=== PATIENT | male | born 1950 | race Caucasian/White ===

== ENCOUNTER 2016-11-16 14:59 | Inpatient (IN) | payer OTHER ==
[~2016-11-16] VITALS: Ht 185.4 cm; Wt 93.4 kg
[2016-11-16] VITALS (8 sets, daily range): BP systolic 126–193; BP diastolic 70–114; PULSE 76–110; RESP 16–20; TEMP 97.5–98.9; O2SAT 94–97
[2016-11-16] MEDS ORDERED: TETANUS/DIPHTHERIA TOXOID ADULT 0.5 ML VIAL IM ONE (15:15)
--- NOTE | 2016-11-16 15:45 | RADRPT ---
EXAM DATE/TIME: 11/16/2016 15:36 [place] COMPARISON: No previous studies available for comparison. INDICATIONS : Rattlesnake bite to front of lower leg. MEDICAL HISTORY : None. SURGICAL HISTORY : None. ENCOUNTER: Initial ACUITY: 1 day PAIN SCORE: 6/10 LOCATION: Left tibia FINDINGS: Two view examination of the left tibia demonstrates no evidence of fracture or dislocation. Bony min eralization is normal. The soft tissue structures are intact. CONCLUSION: Unremarkable examination of the left tibia. No foreign object is identified. Paul Chi MD on November 16, 2016 at 15:43 Board Certified Radiologist. This report was verified electronically.
[2016-11-16 15:54] LABS: AUTOMATED NEUTROPHIL # 3.8 TH/MM3 (1.8-7.7); BASOPHIL # 0.2 TH/MM3 (0-0.2); EOSINOPHIL # 0.3 TH/MM3 (0-0.4); EOSINOPHIL % 3.5 % (0.0-4.0); HEMATOCRIT 43.6 % (39.0-51.0); LYMPH % 41.4 % (9.0-44.0); LYMPHOCYTE # 3.4 TH/MM3 (1.0-4.8); MEAN CELL VOLUME 92.3 FL (80.0-100.0); MEAN CORPUSCULAR HEMOGLOBIN 32.1 PG (27.0-34.0); MEAN CORPUSCULAR HGB CONC 34.8 % (32.0-36.0); NEUT % 47.1 % (16.0-70.0); PLATELET COUNT 97 TH/MM3 (150-450); RED BLOOD COUNT 4.72 MIL/MM3 (4.50-5.90); RED CELL DISTRIBUTION WIDTH 14.2 % (11.6-17.2); WHITE BLOOD COUNT 8.1 TH/MM3 (4.0-11.0)
[2016-11-16 15:59] LABS: HEMO FLAGS AUTO DIFF
[2016-11-16] MEDS ORDERED: MORPHINE SULFATE 8 MG/ML INJ IV PUSH ONE (16:15)
[2016-11-16] MEDS ORDERED: ONDANSETRON HCL 4 MG/2 ML VIAL IV PUSH ONE (16:15)
[2016-11-16 16:50] LABS: APTT (PATIENT) 21.7 SEC (24.3-30.1)
[2016-11-16 16:53] LABS: PLATELET ESTIMATE SMEAR LOW (NORMAL); PLATELET MORPHOLOGY NORMAL (NORMAL); SCAN/DIFF AUTO DIFF CONFIRMED
[2016-11-16 16:59] LABS: ALKALINE PHOSPHATASE 61 U/L (45-117); TOTAL BILIRUBIN ADULT 0.3 MG/DL (0.2-1.0)
[2016-11-16 17:01] LABS: ALT (GPT) 28 U/L (12-78); ANION GAP 10 MEQ/L (5-15); AST (GOT) 27 U/L (15-37); BICARBONATE 23.8 MEQ/L (21.0-32.0); CHLORIDE 107 MEQ/L (98-107); GLOMERULAR FILTRATION RATE 48 ML/MIN (>89); POTASSIUM 4.4 MEQ/L (3.5-5.1); SODIUM (NA) 141 MEQ/L (136-145)
[2016-11-16 17:02] LABS: BLOOD UREA NITROGEN 15 MG/DL (7-18)
--- NOTE | 2016-11-16 17:02 | PD ---
HPI Chief Complaint: Bite or Sting Time Seen by Provider: 15:05 Travel History International Travel<30 days: No Contact w/Intl Traveler<30days: No Traveled to known affect area: No History of Present Illness HPI 66-year-old male was brought to the emergency room by EMS after a rattlesnake bite. Patient was mowing grass and his equipment got stuck and he jumped out of his mower to check the equipment and noticed a diamondback rattlesnake about 3 foot-long came out of the grass and bit him on his left leg through his trousers. He developed intense pain immediately at the site and there was only one puncture wound. He had to physically pull the snake out since it was still attached to his leg by the fang. He called 911. Patient was in significant pain when he arrived. He was mildly tachycardic and hypertensive. He is otherwise a healthy person. He was confident about the identification of the snake since he claims that he knows snakes very well. [facility] Past Medical History Narrative Medical List of his past medical, surgical, social and family history is reviewed from the nursing note. Cardiac Catheterization: Yes Hypertension: Yes Tetanus Vaccination: Unknown Social History Alcohol Use: Yes (weekend) Tobacco Use: No Allergies-Medications (Allergen,Severity, Reaction): Coded Allergies: No Known Allergies (Unverified , 11/16/16) Comments No known drug allergies Reported Meds & Prescriptions Reported Meds & Active Scripts Active No Active Prescriptions or Reported Medications Narrative Medication List of his home medications reviewed from the nursing note. Review of Systems Except as stated in HPI: all other systems reviewed are Neg Physical Exam Narrative GENERAL: Awake, alert, moderate distress, anxious, jjkq-vgt-wj-proportion SKIN: Focused skin assessment warm/dry. One puncture wound on the left mid vinson. There is no redness or swelling HEAD: Atraumatic. Normocephalic. EYES: Pupils equal and round. No scleral icterus. No injection or drainage. ENT: No nasal bleeding or discharge. Mucous membranes pink and moist. NECK: Trachea midline. No JVD. CARDIOVASCULAR: Regular rate and rhythm. No murmur appreciated. RESPIRATORY: No accessory muscle use. Clear to auscultation. Breath sounds equal bilaterally. GASTROINTESTINAL: Abdomen soft, non-tender, nondistended. Hepatic and splenic margins not palpable. MUSCULOSKELETAL: No obvious deformities. No clubbing. No cyanosis. No edema. NEUROLOGICAL: Awake and alert. No obvious cranial nerve deficits. Motor grossly within normal limits. Normal speech. PSYCHIATRIC: Appropriate mood and affect; insight and judgment normal. Data Data Last Documented VS Vital Signs Date Time Temp Pulse Resp B/P Pulse Ox O2 Delivery O2 Flow Rate FiO2 11/16/16 15:08 98.7 109 18 193/96 97 Orders Tetanus/Diphtheria Tox Adult (Tetanus/Di (11/16/16 15:15) Complete Blood Count With Diff (11/16/16 15:08) Comprehensive Metabolic Panel (11/16/16 15:08) Prothrombin Time / Inr (Pt) (11/16/16 15:08) Act Partial Throm Time (Ptt) (11/16/16 15:08) Fibrinogen (11/16/16 15:08) ^ Saline Lock (11/16/16 15:08) Outreach Liaison / Telemetry CHANTAL.Q8H (11/16/16 15:08) Urinalysis - C+S If Indicated (11/16/16 15:08) Tibia/Fibula (Ap/Lat) (11/16/16 ) Morphine Inj (Morphine Inj) (11/16/16 16:15) Ondansetron Inj (Zofran Inj) (11/16/16 16:15) D-Dimer (11/16/16 17:04) Sodium Chlor 0.9% 1000 Ml Inj (Ns 1000 M (11/16/16 17:15) Sodium Chlor 0.9% 1000 Ml Inj (Ns 1000 M (11/16/16 17:15) Type And Screen (11/16/16 17:09) ^ Other Nursing Orders (11/16/16 17:10) Crotalidae Polyval Imm Gideon Inj (Crofab I (11/16/16 17:30) Fentanyl Inj (Fentanyl Inj) (11/16/16 17:30) Metoclopramide Inj (Reglan Inj) (11/16/16 17:30) Admit Order (Ed Use Only) (11/16/16 17:40) Labs Laboratory Tests Test 11/16/16 11/16/16 11/16/16 15:28 16:58 17:21 White Blood Count 8.1 TH/MM3 Red Blood Count 4.72 MIL/MM3 Hemoglobin 15.2 GM/DL Hematocrit 43.6 % Mean Corpuscular Volume 92.3 FL Mean Corpuscular Hemoglobin 32.1 PG Mean Corpuscular Hemoglobin 34.8 % Concent Red Cell Distribution Width 14.2 % Platelet Count 97 TH/MM3 Mean Platelet Volume 7.9 FL Neutrophils (%) (Auto) 47.1 % Lymphocytes (%) (Auto) 41.4 % Monocytes (%) (Auto) 6.0 % Eosinophils (%) (Auto) 3.5 % Basophils (%) (Auto) 2.0 % Neutrophils # (Auto) 3.8 TH/MM3 Lymphocytes # (Auto) 3.4 TH/MM3 Monocytes # (Auto) 0.5 TH/MM3 Eosinophils # (Auto) 0.3 TH/MM3 Basophils # (Auto) 0.2 TH/MM3 CBC Comment AUTO DIFF Differential Comment AUTO DIFF CONFIRMED Platelet Estimate LOW Platelet Morphology Comment NORMAL Prothrombin Time 11.0 SEC Prothromb Time International 1.0 RATIO Ratio Activated Partial 21.7 SEC Thromboplast Time Fibrinogen 109 mg/dL Sodium Level 141 MEQ/L Potassium Level 4.4 MEQ/L Chloride Level 107 MEQ/L Carbon Dioxide Level 23.8 MEQ/L Anion Gap 10 MEQ/L Blood Urea Nitrogen 15 MG/DL Creatinine 1.48 MG/DL Estimat Glomerular Filtration 48 ML/MIN Rate Random Glucose 107 MG/DL Calcium Level 8.9 MG/DL Total Bilirubin 0.3 MG/DL Aspartate Amino Transf 27 U/L (AST/SGOT) Alanine Aminotransferase 28 U/L (ALT/SGPT) Alkaline Phosphatase 61 U/L Total Protein 7.3 GM/DL Albumin 3.9 GM/DL D-Dimer Quantitative (PE/DVT) 9.94 MG/L FEU Blood Type A POSITIVE Antibody Screen NEGATIVE Blood Bank Comment [facility] Medical Decision Making Medical Screen Exam Complete: Yes Emergency Medical Condition: Yes Medical Record Reviewed: Yes Interpretation(s) Twelve-lead EKG was reviewed by me. Normal sinus rhythm, left axis deviation, tachycardia, nonspecific ST-T wave changes. Rate of 115 bpm. Differential Diagnosis Rattlesnake bite Narrative Course 5:45 PM I discussed the case initially after I saw the patient with poison control. The poison inventory control assistant recommended to measure the leg at the bite area and 2 spots above it in which case this would be the knee and mid thigh. This needed to be done every 15 minutes and if there is swelling then to call back poison control in which case patient would probably become a candidate for CroFab. They specifically recommended not to give CroFab at this point since there was no swelling. Labs were done as per their recommendation as well. Meanwhile as the measurements were getting done and they were unchanged the patient started experiencing increasing pain and some ankle swelling. I had ordered morphine with Zofran which made the patient very nauseous and vomit. Poison control was called back at this point by me once again since I was really concerned of his [id number]-proportion. They connected me with the electrical engineering intern and as per him since the patient's lab work, which had come back by now, showed thrombocytopenia to some extent (but no old CBC to compare with) and low fibrinogen count, he recommended to go ahead and start CroFab. I spoke with the patient and let him know about the antivenom and asked him if he was allergic to Papaya since the antivenom contained papain. He seemed anxious and irritated at this point and told me he wasn't sure but as far as he knew he was not allergic to anything. Patient will be getting the CroFab and has been admitted to the lime trimmer. I spoke with Dr. Barrett and conveyed to him regarding the care plan. He came and saw the patient as well. The circumferential measurements will continue. Patient has been given fentanyl and Reglan at this point for pain control and intense nausea. 7 PM patient continued to complain of his leg pain. I went back to check on him since the nurse told me that his leg appears to be significantly swollen. At this point I noticed that both medial and lateral part of the lower leg was severely tender on palpation and was tense but posteriorly over the calf area the tension was not as much and not much of tenderness either. At this point I decided to check the compartment pressures. Please refer to my procedure note and the measurements. I have spoken with Dr. Hamilton from ICU and let her know about the compartment pressure as well as conveyed the care plan as per the electrical engineering intern. Critical Care Narrative Aggregate critical care time was 80 minutes. Time to perform other separately billable procedures was not included in the critical care time. My time did not include minutes spent treating any other patients simultaneously or on activities that did not directly contribute to the patient's treatment. The services I provided to this patient were to treat and/or prevent clinically significant deterioration that could result in: Rattlesnake bite, CroFab administration I provided critical care services requiring my management, as noted below: Chart data review, documentation time, medication orders and management, vital sign assessments/reviewing monitor data, ordering and reviewing lab tests, ordering and interpreting/reviewing x-rays and diagnostic studies, care of the patient and discussion of the patient with the admitting physicians. Procedures Procedure Narrative Compartment pressure: The area was cleaned with Betadine to check for the anterior, medial and superficial posterior laceration. The Bovey apparatus was loaded up and calibrated. 1% lidocaine about 1 mL was infiltrated in each site. The Soila needle was inserted. These were the following pressures Anterior compartment: Less than 10 Medial compartment: Less than 10 Superficial posterior compartment: Less than 10 Patient tolerated the procedure overall well. And it was asked to be applied by the nurse on each puncture sites. EKG Prior to Arrival: No Physician Communication Physician Communication Dr. Barrett, electrical engineering intern Diagnosis Primary Impression: Toxic effect of rattlesnake venom Qualified Code: T63.011A - Toxic effect of rattlesnake venom, accidental or unintentional, initial encounter Admitting Information Admitting Physician Requests: Admit Scripts No Active Prescriptions or Reported Meds Lili Felder MD Nov 16, 2016 17:02
[2016-11-16] MEDS ORDERED: CROTALIDAE FAB ANTIVENIN POLYVAL 1 GM VIAL IV ONE ×2 (17:15→22:00)
[2016-11-16] MEDS ORDERED: SODIUM CHLOR 0.9% 1000 ML INJ 1,000 ML IV ONE ×2 (17:15)
[2016-11-16] MEDS ORDERED: SODIUM CHLOR 0.9% IV ONE (17:30)
[2016-11-16] MEDS ORDERED: CROTALIDAE POLYVAL IMM FAB IV ONE (17:30)
[2016-11-16] MEDS ORDERED: METOCLOPRAMIDE HCL 10 MG/2 ML VIAL IV PUSH ONE (17:30)
[2016-11-16] MEDS ORDERED: CROTALIDAE POLYVALENT IMMUNE FAB IV ONE (17:30)
[2016-11-16] MEDS ORDERED: [UNRECOGNIZED DRUG - OTHER] IV ONE (17:30)
--- NOTE | 2016-11-16 17:51 | HHI.HP ---
HPI Service Critical Care Medicine Primary Care Physician No Primary Care Physician Admission Diagnosis Rattlesnake bite Diagnosis: (1) Toxic effect of rattlesnake venom Diagnosis: Principal (2) History of hypertension Diagnosis: Principal (3) Thrombocytopenia Diagnosis: Principal (4) Fibrinogen decreased Diagnosis: Principal (5) Elevated d-dimer Diagnosis: Principal Chief Complaint: Bitten by dominant background snake to left anterior tibia Travel History International Travel<30 Days: No Contact w/Intl Traveler <30 Da: No Traveled to Known Affected Are: No History of Present Illness 66-year-old male. Date of admission 11/16/2016. Past medical history includes hypertension and prior cardiac catheterization. Patient has a significant family history for coronary disease with his mother, father and 3 brothers all from cardiac events. 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 He jumped off a smaller approximately 2 PM to check his equipment and was acutely bitten by a diamondback rattlesnake about 3 foot-long on his left anterior tibia through his trousers. He developed intense pain and check the side and there was one puncture wound. This is approximately 2 x 2 centimeters in size. Patient was in significant pain when he arrived. He was mildly tachycardic and hypertensive. Workup included measuring 3 separate sites including at the site of the rattlesnake bite and 10 cm cranial 2.. There is some trace pedal edema and swelling above the knee. This will be documented below. Platelets 97. His creatinine slightly elevated at 1.47. Elevated d-dimer as well. Patient is currently tentatively. He did not tolerate morphine which can nausea. Receive fentanyl in ED. Poison control recommended repeating all laboratories including BMP, CBC, coags in 6 hours.. At 1835, patient received 6 g of CroFab. Each follows diluted with 18 mL of 0.9 % normal saline and the next with continuous manual inversion. This was further dilated total dose in 250 cc normal saline. This was begun at an infusion rate of 50 mL per minute. If no reaction is noted, will be increased to 250 mL an hour to deliver the remainder of the dose within 60 minutes. The patient will be monitored for 1 hour following CroFab infusion. The need for additional and available based upon clinical response. Level of snake bite. 42 cm to 42.5 cm since admission 10 cm above snake bite 37 cm to 38.5 cm Review of Systems Constitutional: DENIES: Fatigue, Fever, Weight gain, Weight loss, Chills Endocrine: DENIES: Polydipsia, Polyuria Eyes: DENIES: Blurred vision, Double Vision Respiratory: DENIES: Apneas Cardiovascular: DENIES: Chest pain Gastrointestinal: DENIES: Constipation, Diarrhea, Nausea, Vomiting Musculoskeletal: COMPLAINS OF: Joint pain, Muscle aches, Joint Swelling Integumentary: COMPLAINS OF: Abnormal pigmentation Hematologic/lymphatic: DENIES: Bruising Immunologic/allergic: DENIES: Eczema Neurologic: DENIES: Abnormal gait, Headache Psychiatric: DENIES: Anxiety, Confusion Past Family Social History Allergies: Coded Allergies: No Known Allergies (Unverified , 11/16/16) Past Medical History History of hypertension Past Surgical History Cardiac catheterization Reported Medications None Active Ordered Medications Reviewed in EMR Family History Mother, father and 3 brothers from myocardial infarction/complications of heart disease Social History Social alcohol weekend. Denies binge drinker. No tobacco. No IV drug use. Physical Exam Vital Signs Vital Signs Date Time Temp Pulse Resp B/P Pulse Ox O2 Delivery O2 Flow Rate FiO2 11/16/16 15:08 98.7 109 18 193/96 97 Physical Exam GENERAL: 66-year-old male, resting in bed in mild distress secondary to pain SKIN: Warm and dry. Noted diamondback snake bite to the anterior tibia approximately 2 x 2 centimeters in size. 42.5 cm circumference at snake bite site. 10 cm above 38.5 cm. Circumference HEAD: Atraumatic. Normocephalic. EYES: Pupils equal and round around 3 mm bilaterally and reactive. No scleral icterus. No injection or drainage. ENT: No nasal bleeding or discharge. Mucous membranes pink and moist. NECK: Trachea midline. No JVD. CARDIOVASCULAR: Tachycardic, RR. S1, S2. No S4. Without murmurs. RESPIRATORY: Clear to auscultation. Breath sounds equal bilaterally. GASTROINTESTINAL: Abdomen soft, non-tender, nondistended. Hepatic and splenic margins not palpable. MUSCULOSKELETAL: Extremities with edema as above in the skin section NEUROLOGICAL: Awake and alert. No obvious cranial nerve deficits. Motor grossly within normal limits. Five out of 5 muscle strength in the arms and legs. Normal speech. PSYCHIATRIC: Appropriate mood and affect; insight and judgment normal. Laboratory Laboratory Tests Test 11/16/16 15:28 White Blood Count 8.1 Red Blood Count 4.72 Hemoglobin 15.2 Hematocrit 43.6 Mean Corpuscular Volume 92.3 Mean Corpuscular Hemoglobin 32.1 Mean Corpuscular Hemoglobin 34.8 Concent Red Cell Distribution Width 14.2 Platelet Count 97 Mean Platelet Volume 7.9 Neutrophils (%) (Auto) 47.1 Lymphocytes (%) (Auto) 41.4 Monocytes (%) (Auto) 6.0 Eosinophils (%) (Auto) 3.5 Basophils (%) (Auto) 2.0 Neutrophils # (Auto) 3.8 Lymphocytes # (Auto) 3.4 Monocytes # (Auto) 0.5 Eosinophils # (Auto) 0.3 Basophils # (Auto) 0.2 CBC Comment AUTO DIFF Differential Comment AUTO DIFF CONFIRMED Platelet Estimate LOW Platelet Morphology Comment NORMAL Prothrombin Time 11.0 Prothromb Time International 1.0 Ratio Activated Partial 21.7 Thromboplast Time Fibrinogen 109 Sodium Level 141 Potassium Level 4.4 Chloride Level 107 Carbon Dioxide Level 23.8 Anion Gap 10 Blood Urea Nitrogen 15 Creatinine 1.48 Estimat Glomerular Filtration 48 Rate Random Glucose 107 Calcium Level 8.9 Total Bilirubin 0.3 Aspartate Amino Transf 27 (AST/SGOT) Alanine Aminotransferase 28 (ALT/SGPT) Alkaline Phosphatase 61 Total Protein 7.3 Albumin 3.9 Result Diagram: 11/16/16 1528 11/16/16 1528 Imaging Last Impressions Tibia/Fibula X-Ray 11/16/16 0000 Signed Impressions: Service Date/Time: Wednesday, November 16, 2016 15:36 - CONCLUSION: Unremarkable examination of the left tibia. No foreign object is identified. Paul Chi MD Assessment and Plan Assessment and Plan Neuro/Psych: Pain management's rattlesnake bite Acetaminophen 650 mg by mouth every 6 hours when necessary for fever [place] 5/325 one tablet every 4 hours. Pain 1-5 Dilaudid 1 mg IV every 4 hours when necessary pain 6-10 CV: Sinus tachycardia Currently on normal saline at 100 cc an hour Follow-up on EKG Resp: Nasal cannula to maintain saturations greater than or equal to 92% Incentive spirometry while awake Follow-up on chest x-ray GI: Regular diet. Pantoprazole for GI prophylaxis Ana-Colace twice a day for bowel regimen Zofran for nausea : No indication for Gimenez catheter placement Endo: Sliding-scale insulin if indicated to maintain euglycemia Renal: Elevated creatinine possibly acute kidney injury Monitor urine output Accurate I's and O's Currently on normal saline at 100 cc an hour. Follow BMP in a.m. Heme: Thrombocytopenia Low fibrinogen Elevated d-dimer Recommended to repeat laboratories within 6 hours post snake bite. Treat as clinically indicated MSK: Diamondback snake bite Serial circumferential measurements every 15 minutes until swelling stops. Snake bite is increased to 42 cm to 42.5 cm 10 cm Above snake bite has increased from 37-38.5 cm. Received CroFab 6 g 1 now. Will monitor closely one hour following CroFab infusion. If controlled - defined as no increase in swelling and resolution of coagulopathy is not achieved administer additional 6 g of CroFab IV over one hour. If controlled - defined as increase in swelling and resolution of coagulopathy is achieved the maintenance dose of CroFab. This is a 2 g CroFab infused over 1 hour every 6 hours 3 dosages. ID: Monitor for infection FEN: Replacing electrolytes as clinically indicated Access - Utilize peripheral IV. Central line if indicated Prophylaxis - GI - pantoprazole - DVT - SCD/heparin subcutaneous Critical Care: The total critical care time was 35 minutes. Time to perform other separately billable procedures was not included in the critical care time. Code Status Full code Discussed Condition With Patient. Care plan discussed all questions answered. Problem Qualifiers (1) Toxic effect of rattlesnake venom: Qualified Code: T63.011A - Toxic effect of rattlesnake venom, accidental or unintentional, initial encounter Gus Barrett MD Nov 16, 2016 17:51
[2016-11-16] MEDS ORDERED: ACETAMINOPHEN 325 MG TAB PO PRN (18:00)
[2016-11-16] MEDS ORDERED: MISCELLANEOUS NURSING INFORMATION XX SCH (18:00)
[2016-11-16] MEDS ORDERED: CHLORHEXIDINE GLUCONATE 2 % 1 PACK (2 CLOTHS) TOP PRN (18:00)
[2016-11-16] MEDS ORDERED: SODIUM CHLORIDE 0.9% FLUSH 10 ML FLUSH IV FLUSH PRN (18:00)
[2016-11-16] MEDS ORDERED: ONDANSETRON HCL 4 MG/2 ML VIAL IV PRN (18:00)
[2016-11-16] MEDS ORDERED: BISACODYL 10 MG SUPP RECTAL PRN (18:00)
[2016-11-16] MEDS ORDERED: RESP: ALBUTEROL 2.5 MG/3 ML NEB (PRN) INH (18:00)
[2016-11-16] MEDS ORDERED: HYDROmorphone HCL PF 1 MG/ML VIAL IV PRN (18:00)
[2016-11-16] MEDS ORDERED: MAGNESIUM HYDROXIDE SUSP 30 ML CUP PO PRN (18:00)
[2016-11-16] MEDS ORDERED: ACETAMINOPHEN/HYDROcodone 325 MG/5 MG TAB PO PRN (18:00)
[2016-11-16] MEDS ORDERED: SENNOSIDES 8.6 MG TAB PO PRN (18:00)
[2016-11-16 18:36] LABS: BLOOD, URINE SMALL (NEG); COMMENT (UR) CULT NOT INDICATED; CULTURE IF INDICATED CULT NOT INDICATED; GLUCOSE,URINE NEG (NEG); KETONE, URINE NEG (NEG); MUCUS URINE FEW /lpf (OCC); NITRITE,URINE NEG (NEG); SQUAMOUS EPITHELIAL CELL URINE <1 /hpf (0-5); URINE COLOR LIGHT-YELLOW (YELLW/STRAW)
[2016-11-16] MEDS ORDERED: LIDOCAINE HCL 1% PF 30 ML VIAL ONE (18:46)
[2016-11-16] MEDS: SODIUM CHLOR 0.9% 1000 ML INJ 1,000 ML IV SCH (20:11)
[2016-11-16 20:13] LABS: AUTOMATED NEUTROPHIL # 11.2 TH/MM3 (1.8-7.7); BASOPHIL # 0.1 TH/MM3 (0-0.2); BASOPHIL % 0.4 % (0.0-2.0); EOSINOPHIL % 0.2 % (0.0-4.0); HEMATOCRIT 45.8 % (39.0-51.0); HEMO FLAGS DIFF FINAL; LYMPH % 8.2 % (9.0-44.0); LYMPHOCYTE # 1.1 TH/MM3 (1.0-4.8); MEAN CELL VOLUME 92.7 FL (80.0-100.0); MEAN CORPUSCULAR HEMOGLOBIN 30.5 PG (27.0-34.0); MEAN CORPUSCULAR HGB CONC 32.9 % (32.0-36.0); MONO % 9.4 % (0.0-8.0); NEUT % 81.8 % (16.0-70.0); PLATELET COUNT 244 TH/MM3 (150-450); RED BLOOD COUNT 4.94 MIL/MM3 (4.50-5.90); RED CELL DISTRIBUTION WIDTH 14.2 % (11.6-17.2); WHITE BLOOD COUNT 13.7 TH/MM3 (4.0-11.0)
[2016-11-16 20:32] LABS: BICARBONATE 23.2 MEQ/L (21.0-32.0); POTASSIUM 4.3 MEQ/L (3.5-5.1)
[2016-11-16 21:39] LABS: INTERNATIONAL NORMALIZED RATIO GREATER THAN 16.7 RATIO
[2016-11-16 21:42] LABS: APTT (PATIENT) 26.2 SEC (24.3-30.1); PROTHROMBIN TIME - PATIENT GREATER THAN 180.0 SEC (9.8-11.6)
[2016-11-16 21:46] LABS: FIBRINOGEN LESS THAN 50 mg/dL (227-377)
[2016-11-16] MEDS ORDERED: diphenhydrAMINE HCL 50 MG/ML VIAL IV PUSH ONE (22:30)
[2016-11-16] MEDS ORDERED: HYDROmorphone HCL PF 1 MG/ML VIAL IV PUSH PRN (22:30)
[2016-11-16] MEDS: DOCUSATE SODIUM 50 MG/SENNA 8.6 MG TAB PO SCH (22:51)
[2016-11-16] MEDS: HYDROmorphone HCL PF 1 MG/ML VIAL IV PRN (22:51)
[2016-11-16] MEDS: SODIUM CHLORIDE 0.9% FLUSH 10 ML FLUSH IV FLUSH SCH (22:52)
[2016-11-17] VITALS (15 sets, daily range): BP systolic 84–142; BP diastolic 56–75; PULSE 84–124; RESP 11–23; TEMP 97.5–99.7; O2SAT 94–99
[2016-11-17 01:56] LABS: AUTOMATED NEUTROPHIL # 14.7 TH/MM3 (1.8-7.7); BASOPHIL % 0.1 % (0.0-2.0); HEMATOCRIT 40.3 % (39.0-51.0); HEMO FLAGS DIFF FINAL; LYMPH % 3.4 % (9.0-44.0); LYMPHOCYTE # 0.5 TH/MM3 (1.0-4.8); MEAN CELL VOLUME 92.4 FL (80.0-100.0); MEAN CORPUSCULAR HEMOGLOBIN 31.2 PG (27.0-34.0); MEAN CORPUSCULAR HGB CONC 33.8 % (32.0-36.0); MONO % 5.9 % (0.0-8.0); NEUT % 90.6 % (16.0-70.0); PLATELET COUNT 270 TH/MM3 (150-450); RED BLOOD COUNT 4.36 MIL/MM3 (4.50-5.90); RED CELL DISTRIBUTION WIDTH 14.3 % (11.6-17.2); WHITE BLOOD COUNT 16.2 TH/MM3 (4.0-11.0)
[2016-11-17 02:18] LABS: PROTHROMBIN TIME - PATIENT 18.8 SEC (9.8-11.6)
[2016-11-17 02:19] LABS: APTT (PATIENT) 23.7 SEC (24.3-30.1)
[2016-11-17 02:27] LABS: INTERNATIONAL NORMALIZED RATIO 1.7 RATIO
[2016-11-17] MEDS ORDERED: CROTALIDAE FAB ANTIVENIN POLYVAL 1 GM VIAL IV ONE (02:45)
[2016-11-17] MEDS ORDERED: diphenhydrAMINE HCL 50 MG/ML VIAL IV PUSH ONE (02:45)
[2016-11-17] MEDS ORDERED: CROTALIDAE POLYVAL IMM FAB IV ONE (03:00)
[2016-11-17] MEDS ORDERED: SODIUM CHLOR 0.9% IV ONE (03:00)
[2016-11-17 03:08] LABS: CKMB 8.2 NG/ML (0.5-3.6)
[2016-11-17] MEDS ORDERED: LACTATED RINGER'S 1000 ML INJ 1,000 ML IV ONE (03:15)
[2016-11-17] MEDS: CHLORHEXIDINE GLUCONATE 2 % 1 PACK (2 CLOTHS) TOP SCH (03:28)
[2016-11-17] MEDS ORDERED: GLUCAGON 1 MG/ML VIAL OTHER PRN (03:30)
[2016-11-17] MEDS ORDERED: methylPREDNISolone SOD SUCC 125 MG/2 ML VIAL IV PUSH ONE (03:30)
[2016-11-17] MEDS ORDERED: DEXTROSE 50% IN WATER 50 ML VIAL(D50) IV PRN (03:30)
[2016-11-17 04:23] LABS: AUTOMATED NEUTROPHIL # 12.6 TH/MM3 (1.8-7.7); HEMATOCRIT 37.6 % (39.0-51.0); HEMO FLAGS DIFF FINAL; LYMPH % 4.4 % (9.0-44.0); LYMPHOCYTE # 0.6 TH/MM3 (1.0-4.8); MEAN CELL VOLUME 93.8 FL (80.0-100.0); MEAN CORPUSCULAR HEMOGLOBIN 30.9 PG (27.0-34.0); NEUT % 89.6 % (16.0-70.0); PLATELET COUNT 278 TH/MM3 (150-450); RED BLOOD COUNT 4.01 MIL/MM3 (4.50-5.90); RED CELL DISTRIBUTION WIDTH 14.3 % (11.6-17.2); WHITE BLOOD COUNT 14.1 TH/MM3 (4.0-11.0)
[2016-11-17 04:31] LABS: APTT (PATIENT) 23.6 SEC (24.3-30.1); INTERNATIONAL NORMALIZED RATIO 1.4 RATIO; PROTHROMBIN TIME - PATIENT 16.1 SEC (9.8-11.6)
[2016-11-17 05:47] LABS: CALCIUM-PROTEIN CORRECTED 8.2 MG/DL (8.5-10.1); MAGNESIUM 1.7 MG/DL (1.5-2.5); POTASSIUM 6.5 MEQ/L (3.5-5.1); TOTAL BILIRUBIN ADULT 0.5 MG/DL (0.2-1.0)
[2016-11-17] MEDS: INSULIN ASPART SUPPLEMENTAL SCALE SQ SCH ×4 (06:42→20:04)
[2016-11-17 07:06] LABS: APTT (PATIENT) 23.4 SEC (24.3-30.1); INTERNATIONAL NORMALIZED RATIO 1.4 RATIO; PROTHROMBIN TIME - PATIENT 15.4 SEC (9.8-11.6)
[2016-11-17 07:42] LABS: BASOPHIL % 0.1 % (0.0-2.0); HEMATOCRIT 35.4 % (39.0-51.0); HEMO FLAGS DIFF FINAL; LYMPH % 5.5 % (9.0-44.0); LYMPHOCYTE # 0.7 TH/MM3 (1.0-4.8); MEAN CELL VOLUME 93.9 FL (80.0-100.0); MEAN CORPUSCULAR HEMOGLOBIN 30.6 PG (27.0-34.0); MEAN CORPUSCULAR HGB CONC 32.5 % (32.0-36.0); MONO % 2.6 % (0.0-8.0); NEUT % 91.8 % (16.0-70.0); PLATELET COUNT 271 TH/MM3 (150-450); RED BLOOD COUNT 3.76 MIL/MM3 (4.50-5.90); RED CELL DISTRIBUTION WIDTH 14.4 % (11.6-17.2); WHITE BLOOD COUNT 13.1 TH/MM3 (4.0-11.0)
[2016-11-17] MEDS: DOCUSATE SODIUM 50 MG/SENNA 8.6 MG TAB PO SCH ×2 (09:00→20:00)
[2016-11-17] MEDS ORDERED: DEXTROSE 50% IN WATER 50 ML VIAL(D50) IV PUSH ONE (09:00)
[2016-11-17] MEDS ORDERED: CALCIUM GLUCONATE 10% 1 GM/10 ML VIAL SLOW IVP ONE (09:00)
[2016-11-17] MEDS ORDERED: INSULIN HUMAN REGULAR 1,000 UNITS/10 ML VIAL IV PUSH ONE (09:00)
[2016-11-17] MEDS ORDERED: SODIUM POLYSTYRENE SULFONATE SUSP 15 GM/60 ML CUP PO ONE (09:00)
[2016-11-17] MEDS ORDERED: SODIUM BICARBONATE 8.4% SOLN 50 MEQ/50 ML VIAL SLOW IVP ONE (09:00)
--- NOTE | 2016-11-17 09:09 | HHI.CCPN ---
Subjective Remarks/Hospital Course 66-year-old male. Date of admission 11/16/2016. Past medical history includes hypertension and prior cardiac catheterization. Patient has a significant family history for coronary disease with his mother, father and 3 brothers all from cardiac events. 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 He jumped off a smaller approximately 2 PM to check his equipment and was acutely bitten by a diamondback rattlesnake about 3 foot-long on his left anterior tibia through his trousers. He developed intense pain and check the side and there was one puncture wound. This is approximately 2 x 2 centimeters in size. Patient was in significant pain when he arrived. He was mildly tachycardic and hypertensive. Workup included measuring 3 separate sites including at the site of the rattlesnake bite and 10 cm cranial 2.. There is some trace pedal edema and swelling above the knee. This will be documented below. Platelets 97. His creatinine slightly elevated at 1.47. Elevated d-dimer as well. Patient is currently tentatively. He did not tolerate morphine which can nausea. Receive fentanyl in ED. Poison control recommended repeating all laboratories including BMP, CBC, coags in 6 hours.. At 1835, patient received 6 g of CroFab. Each follows diluted with 18 mL of 0.9 % normal saline and the next with continuous manual inversion. This was further dilated total dose in 250 cc normal saline. This was begun at an infusion rate of 50 mL per minute. If no reaction is noted, will be increased to 250 mL an hour to deliver the remainder of the dose within 60 minutes. The patient will be monitored for 1 hour following CroFab infusion. The need for additional and available based upon clinical response. Level of snake bite. 42 cm to 42.5 cm since admission 10 cm above snake bite 37 cm to 38.5 cm Subjective 11/17: Tmax 99.2. Received 2 additional dosage of 6 g CroFab overnight. Initially fulminant DIC. Fibrinogen currently 61. INR 1.4. PTT 23. Improving DIC panel and poison control recommends maintenance dose of CroFab 2 g over one hour every 6 hours 3 dosages. Laboratories including CBC, coags, fibrinogen and d-dimer post 1 hour infusion. Increased pain medications with hydromorphone 0.5-1 mg every 2 hours when necessary pain. Pain is currently an 8 out of 10. More ecchymosis noted but this edema at site of incision tendency was above much improved. No signs of compartment syndrome with palpable peripheral pulses Objective Vital Signs Date Time Temp Pulse Resp B/P Pulse Ox O2 Delivery O2 Flow Rate FiO2 11/17/16 06:00 98 11/17/16 04:00 98.1 15 94/62 96 11/16/16 23:13 Nasal Cannula 3.00 Result Diagram: 11/17/16 0729 11/17/16 0353 Imaging Last Impressions Tibia/Fibula X-Ray 11/16/16 0000 Signed Impressions: Service Date/Time: Wednesday, November 16, 2016 15:36 - CONCLUSION: Unremarkable examination of the left tibia. No foreign object is identified. Paul Chi MD Objective Remarks GENERAL: 66-year-old male, resting in bed in mild distress secondary to pain SKIN: Warm and dry. Noted diamondback snake bite to the anterior tibia approximately 2 x 2 centimeters in size some oozing. Increasing evolving ecchymoses throughout the left lower extremity from below the knee to toes. 41 cm circumference at snake bite site. 10 cm above 38 cm. Circumference HEAD: Atraumatic. Normocephalic. EYES: Pupils equal and round around 3 mm bilaterally and reactive. No scleral icterus. No injection or drainage. ENT: No nasal bleeding or discharge. Mucous membranes pink and moist. NECK: Trachea midline. No JVD. CARDIOVASCULAR: Tachycardic, RR. S1, S2. No S4. Without murmurs. RESPIRATORY: Clear to auscultation. Breath sounds equal bilaterally. GASTROINTESTINAL: Abdomen soft, non-tender, nondistended. Hepatic and splenic margins not palpable. MUSCULOSKELETAL: Extremities with edema as above in the skin section NEUROLOGICAL: Awake and alert. No obvious cranial nerve deficits. Motor grossly within normal limits. Five out of 5 muscle strength in the arms and legs. Normal speech. PSYCHIATRIC: Appropriate mood and affect; insight and judgment normal. A/P Assessment and Plan Neuro/Psych: Pain management's rattlesnake bite Acetaminophen 650 mg by mouth every 6 hours when necessary for fever Hydrocodone/acetaminophen 5/325 one tablet every 4 hours. Pain 1-5 Hydromorphone 0.5-1 mg IV every 2 hours. Pain management 1-10 as well CV: Sinus tachycardia Lactic acidosis Currently on normal saline at 125 cc an hour Currently not requiring antihypertensives and/or vasopressors Serial lactates until clear. Currently 2.7 Resp: Hypoalbuminemia Nasal cannula to maintain saturations greater than or equal to 92% Incentive spirometry while awake Chest x-ray revealed no acute cardiopulmonary findings GI: We'll switch to a renal diet Pantoprazole for GI prophylaxis Docusate sodium/senna 1 tablet twice a day for bowel regimen Zofran as needed for nausea : No indication for Gimenez catheter placement Endo: Sliding-scale insulin with low regimen Novulog mbefore meals/at bedtime Renal: Acute kidney injury Increased to 2.27 overnight Unclear inciting event. Check urine eosinophil/electrolytes. Kidney ultrasound ordered Increase crystalloid resuscitation see above Monitor urine output Accurate I's and O's Currently on normal saline at 125 cc an hour. Follow BMP in a.m. Avoid nephrotoxic drugs Heme: Thrombocytopenia Low fibrinogen Elevated d-dimer Recommended to repeat laboratories within one hour after receiving CroFab bolus. INR: 1.4. PTT 23. Fibrinogen 61. D-dimer 2.1 MSK: Diamondback snake bite Serial circumferential measurements every 15 minutes until swelling stops. Snake bite circumference at site decreased from 42.5-41 cm 10 cm Above snake bite has increased from 38.5-38 cm. Currently on maintenance dose of CroFab 2 g IV infusion 1 hour every 6 hours 3 dosages. Will monitor closely one hour following CroFab infusion. Check laboratories as above in heme section Status post tetanus diphtheria tox 0.5 mg IM 1 ID: Monitor for infection FEN: Hyperkalemia Replacing electrolytes as clinically indicated Received calcium gluconate 1 g 1, 10 units insulin, one amp of D50, 1 amp of sodium bicarbonate and 15 g Kayexalate. Recheck in 3 hours Access - Utilize peripheral IV. Central line if indicated Prophylaxis - GI - pantoprazole - DVT - SCD/no pharmacological prophylaxis in light of DIC Level III follow-up Gus Barrett MD Nov 17, 2016 09:09
[2016-11-17] MEDS: PANTOPRAZOLE SODIUM 40 MG VIAL IV SCH (09:18)
[2016-11-17] MEDS: SODIUM CHLORIDE 0.9% FLUSH 10 ML FLUSH IV FLUSH SCH ×2 (09:21→20:00)
[2016-11-17] MEDS: HYDROmorphone HCL PF 1 MG/ML VIAL IV PRN ×3 (09:32→20:00)
[2016-11-17] MEDS ORDERED: SODIUM CHLOR 0.45% 1000 ML INJ 1,000 ML IV ONE (10:00)
[2016-11-17] MEDS ORDERED: MAGNESIUM SULFATE 1 GM PREMIX 100 ML IV ONE (10:00)
[2016-11-17] MEDS: SODIUM CHLOR 0.9% IV SCH ×3 (10:10→22:33)
[2016-11-17] MEDS: CROTALIDAE POLYVAL IMM FAB IV SCH ×3 (10:10→22:33)
[2016-11-17 13:05] LABS: BASOPHIL % 0.1 % (0.0-2.0); HEMATOCRIT 27.8 % (39.0-51.0); HEMO FLAGS DIFF FINAL; MEAN CELL VOLUME 93.4 FL (80.0-100.0); MEAN CORPUSCULAR HEMOGLOBIN 30.7 PG (27.0-34.0); MEAN CORPUSCULAR HGB CONC 32.9 % (32.0-36.0); MONO % 2.4 % (0.0-8.0); NEUT % 89.5 % (16.0-70.0); PLATELET COUNT 212 TH/MM3 (150-450); RED BLOOD COUNT 2.97 MIL/MM3 (4.50-5.90); RED CELL DISTRIBUTION WIDTH 14.6 % (11.6-17.2); WHITE BLOOD COUNT 12.3 TH/MM3 (4.0-11.0)
[2016-11-17 13:22] LABS: APTT (PATIENT) 24.5 SEC (24.3-30.1); INTERNATIONAL NORMALIZED RATIO 1.2 RATIO; PROTHROMBIN TIME - PATIENT 13.8 SEC (9.8-11.6)
--- NOTE | 2016-11-17 15:05 | EKG ---
Date Performed: 11/16/2016 Time Performed: 18:15:15 PTAGE: 66 years EKG: SINUS TACHYCARDIA ABNORMAL RHYTHM ECG NO PREVIOUS TRACING DOCTOR: Rachael Palomares Interpretating Date/Time 11/17/2016 14:58:55
[2016-11-17] MEDS: SODIUM CHLOR 0.9% 1000 ML INJ 1,000 ML IV SCH ×2 (15:52→20:00)
[2016-11-17] MEDS ORDERED: ONDANSETRON HCL 4 MG/2 ML VIAL IV PUSH PRN (17:00)
--- NOTE | 2016-11-17 17:56 | RADRPT ---
EXAM DATE/TIME: 11/17/2016 16:39 [facility] COMPARISON: No previous studies available for comparison. INDICATIONS : Increased BUN/creatinine. MEDICAL HISTORY : Hypertension. Joint and muscle pain. SURGICAL HISTORY : Cardiac cath. ENCOUNTER: Initial ACUITY: 1 day PAIN SCORE: 0/10 LOCATION: Bilateral flank MEASUREMENTS: RIGHT KIDNEY: 12.1 x 4.8 x 5.7 cm LEFT KIDNEY: 11.2 x 4.8 x 6.0 cm FINDINGS: RIGHT KIDNEY: Renal cortex is normal in thickness and echotexture. No hydronephrosis, stone, or mass. LEFT KIDNEY: Renal cortex is normal in thickness and echotexture. No hydronephrosis, stone, or mass except for 2. 5 x 2.7 x 2.2 cm cyst. BLADDER: Within normal limits given the degree of distension. CONCLUSION: Normal examination except for cyst within the left kidney. Paul Chi MD on November 17, 2016 at 17:54 Board Certified Radiologist. This report was verified electronically.
[2016-11-17 18:10] LABS: CKMB 16.2 NG/ML (0.5-3.6)
[2016-11-17 19:46] LABS: AUTOMATED NEUTROPHIL # 14.2 TH/MM3 (1.8-7.7); BASOPHIL % 0.1 % (0.0-2.0); HEMATOCRIT 23.9 % (39.0-51.0); HEMO FLAGS DIFF FINAL; LYMPH % 9.1 % (9.0-44.0); LYMPHOCYTE # 1.5 TH/MM3 (1.0-4.8); MEAN CELL VOLUME 93.2 FL (80.0-100.0); MEAN CORPUSCULAR HEMOGLOBIN 31.3 PG (27.0-34.0); MEAN CORPUSCULAR HGB CONC 33.6 % (32.0-36.0); MONO % 3.6 % (0.0-8.0); NEUT % 87.2 % (16.0-70.0); PLATELET COUNT 182 TH/MM3 (150-450); RED BLOOD COUNT 2.57 MIL/MM3 (4.50-5.90); RED CELL DISTRIBUTION WIDTH 14.4 % (11.6-17.2); WHITE BLOOD COUNT 16.3 TH/MM3 (4.0-11.0)
[2016-11-17 20:47] LABS: APTT (PATIENT) 23.6 SEC (24.3-30.1); PROTHROMBIN TIME - PATIENT 11.4 SEC (9.8-11.6)
[2016-11-18] VITALS (22 sets, daily range): BP systolic 117–149; BP diastolic 60–78; PULSE 98–128; RESP 8–28; TEMP 98.2–100.2; O2SAT 95–100
[2016-11-18 01:54] LABS: AUTOMATED NEUTROPHIL # 12.3 TH/MM3 (1.8-7.7); BASOPHIL % 0.1 % (0.0-2.0); HEMATOCRIT 21.3 % (39.0-51.0); HEMO FLAGS DIFF FINAL; LYMPH % 10.7 % (9.0-44.0); LYMPHOCYTE # 1.6 TH/MM3 (1.0-4.8); MEAN CELL VOLUME 93.1 FL (80.0-100.0); MEAN CORPUSCULAR HEMOGLOBIN 31.2 PG (27.0-34.0); MEAN CORPUSCULAR HGB CONC 33.5 % (32.0-36.0); NEUT % 83.2 % (16.0-70.0); PLATELET COUNT 166 TH/MM3 (150-450); RED BLOOD COUNT 2.28 MIL/MM3 (4.50-5.90); RED CELL DISTRIBUTION WIDTH 14.9 % (11.6-17.2); WHITE BLOOD COUNT 14.8 TH/MM3 (4.0-11.0)
[2016-11-18 02:02] LABS: APTT (PATIENT) 23.3 SEC (24.3-30.1); PROTHROMBIN TIME - PATIENT 11.3 SEC (9.8-11.6)
[2016-11-18 02:28] LABS: CKMB 16.8 NG/ML (0.5-3.6)
[2016-11-18] MEDS: HYDROmorphone HCL PF 1 MG/ML VIAL IV PRN ×4 (03:03→23:06)
[2016-11-18] MEDS: SODIUM CHLOR 0.9% 1000 ML INJ 1,000 ML IV SCH (03:03)
[2016-11-18] MEDS: CHLORHEXIDINE GLUCONATE 2 % 1 PACK (2 CLOTHS) TOP SCH (03:03)
[2016-11-18 05:33] LABS: AUTOMATED NEUTROPHIL # 13.9 TH/MM3 (1.8-7.7); BASOPHIL % 0.1 % (0.0-2.0); HEMATOCRIT 22.8 % (39.0-51.0); HEMO FLAGS DIFF FINAL; LYMPH % 10.5 % (9.0-44.0); LYMPHOCYTE # 1.8 TH/MM3 (1.0-4.8); MEAN CELL VOLUME 93.4 FL (80.0-100.0); MEAN CORPUSCULAR HEMOGLOBIN 31.6 PG (27.0-34.0); MEAN CORPUSCULAR HGB CONC 33.9 % (32.0-36.0); MONO % 6.9 % (0.0-8.0); NEUT % 82.5 % (16.0-70.0); PLATELET COUNT 180 TH/MM3 (150-450); RED BLOOD COUNT 2.44 MIL/MM3 (4.50-5.90); RED CELL DISTRIBUTION WIDTH 14.7 % (11.6-17.2); WHITE BLOOD COUNT 16.8 TH/MM3 (4.0-11.0)
[2016-11-18 05:48] LABS: APTT (PATIENT) 19.8 SEC (24.3-30.1); PROTHROMBIN TIME - PATIENT 10.8 SEC (9.8-11.6)
[2016-11-18 06:16] LABS: ALKALINE PHOSPHATASE 38 U/L (45-117); ALT (GPT) 44 U/L (12-78); ANION GAP 6 MEQ/L (5-15); AST (GOT) 161 U/L (15-37); BICARBONATE 25.6 MEQ/L (21.0-32.0); BLOOD UREA NITROGEN 46 MG/DL (7-18); CHLORIDE 110 MEQ/L (98-107); CREATINE KINASE 4403 U/L (39-308); GLOMERULAR FILTRATION RATE 52 ML/MIN (>89); MAGNESIUM 2.2 MG/DL (1.5-2.5); POTASSIUM 5.1 MEQ/L (3.5-5.1); SODIUM (NA) 142 MEQ/L (136-145); TOTAL BILIRUBIN ADULT 0.3 MG/DL (0.2-1.0)
[2016-11-18] MEDS: INSULIN ASPART SUPPLEMENTAL SCALE SQ SCH (06:20)
[2016-11-18 06:47] LABS: CKMB 25.4 NG/ML (0.5-3.6)
[2016-11-18 08:35] LABS: APTT (PATIENT) 21.1 SEC (24.3-30.1); PROTHROMBIN TIME - PATIENT 11.1 SEC (9.8-11.6)
[2016-11-18] MEDS: DOCUSATE SODIUM 50 MG/SENNA 8.6 MG TAB PO SCH ×3 (09:00→19:49)
--- NOTE | 2016-11-18 10:32 | HHI.CCPN ---
Subjective Remarks/Hospital Course 66-year-old male. Date of admission 11/16/2016. Past medical history includes hypertension and prior cardiac catheterization. Patient has a significant family history for coronary disease with his mother, father and 3 brothers all from cardiac events. 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 He jumped off a smaller approximately 2 PM to check his equipment and was acutely bitten by a diamondback rattlesnake about 3 foot-long on his left anterior tibia through his trousers. He developed intense pain and check the side and there was one puncture wound. This is approximately 2 x 2 centimeters in size. Patient was in significant pain when he arrived. He was mildly tachycardic and hypertensive. Workup included measuring 3 separate sites including at the site of the rattlesnake bite and 10 cm cranial 2.. There is some trace pedal edema and swelling above the knee. This will be documented below. Platelets 97. His creatinine slightly elevated at 1.47. Elevated d-dimer as well. Patient is currently tentatively. He did not tolerate morphine which can nausea. Receive fentanyl in ED. Poison control recommended repeating all laboratories including BMP, CBC, coags in 6 hours.. At 1835, patient received 6 g of CroFab. Each follows diluted with 18 mL of 0.9 % normal saline and the next with continuous manual inversion. This was further dilated total dose in 250 cc normal saline. This was begun at an infusion rate of 50 mL per minute. If no reaction is noted, will be increased to 250 mL an hour to deliver the remainder of the dose within 60 minutes. The patient will be monitored for 1 hour following CroFab infusion. The need for additional and available based upon clinical response. Level of snake bite. 42 cm to 42.5 cm since admission 10 cm above snake bite 37 cm to 38.5 cm 11/17: Tmax 99.2. Received 2 additional dosage of 6 g CroFab overnight. Initially fulminant DIC. Fibrinogen currently 61. INR 1.4. PTT 23. Improving DIC panel and poison control recommends maintenance dose of CroFab 2 g over one hour every 6 hours 3 dosages. Laboratories including CBC, coags, fibrinogen and d-dimer post 1 hour infusion. Increased pain medications with hydromorphone 0.5-1 mg every 2 hours when necessary pain. Pain is currently an 8 out of 10. More ecchymosis noted but this edema at site of incision tendency was above much improved. No signs of compartment syndrome with palpable peripheral pulses Subjective 11/18: Currently afebrile. Off maintenance CroFab. Still receiving every 6 hours CBC, coags, fibrinogen and d-dimer's. CPK elevated 4400. Renal failure resolving. Remains tachycardic. Objective Vital Signs Date Time Temp Pulse Resp B/P Pulse Ox O2 Delivery O2 Flow Rate FiO2 11/18/16 06:00 108 11/18/16 04:00 98.2 8 120/68 95 11/17/16 23:00 Nasal Cannula 3.00 Intake and Output 11/17/16 11/17/16 11/17/16 07:59 15:59 23:59 Intake Total 2122 ml 3008 ml 565 ml Output Total 1200 ml 500 ml Balance 2122 ml 1808 ml 65 ml Result Diagram: 11/18/16 0809 11/18/16 0512 Imaging Last Impressions Renal Ultrasound 11/17/16 0000 Signed Impressions: Service Date/Time: October 16:39 - CONCLUSION: Normal examination except for cyst within the left kidney. Paul Chi MD Tibia/Fibula X-Ray 11/16/16 0000 Signed Impressions: Service Date/Time: Wednesday, November 16, 2016 15:36 - CONCLUSION: Unremarkable examination of the left tibia. No foreign object is identified. Paul Chi MD Objective Remarks GENERAL: 66-year-old male, resting in bed in mild distress secondary to pain SKIN: Warm and dry. Noted diamondback snake bite to the anterior tibia approximately 2 x 2 centimeters in size some oozing. Increasing evolving ecchymoses throughout the left lower extremity from below the knee to toes. 42.5 cm circumference at snake bite site. 10 cm above 38 cm. Circumference HEAD: Atraumatic. Normocephalic. EYES: Pupils equal and round around 3 mm bilaterally and reactive. No scleral icterus. No injection or drainage. ENT: No nasal bleeding or discharge. Mucous membranes pink and moist. NECK: Trachea midline. No JVD. CARDIOVASCULAR: Tachycardic, RR. S1, S2. No S4. Without murmurs. RESPIRATORY: Clear to auscultation. Breath sounds equal bilaterally. GASTROINTESTINAL: Abdomen soft, non-tender, nondistended. Hepatic and splenic margins not palpable. MUSCULOSKELETAL: Extremities with edema as above in the skin section NEUROLOGICAL: Awake and alert. No obvious cranial nerve deficits. Motor grossly within normal limits. Five out of 5 muscle strength in the arms and legs. Normal speech. PSYCHIATRIC: Appropriate mood and affect; insight and judgment normal. A/P Assessment and Plan Neuro/Psych: Pain management's rattlesnake bite Acetaminophen 650 mg by mouth every 6 hours when necessary for fever Hydrocodone/acetaminophen 5/325 one tablet every 4 hours. Pain 1-5 Hydromorphone 0.5-1 mg IV every 2 hours. Pain management 1-10 as well CV: Sinus tachycardia Lactic acidosis - resolving Currently on one half normal saline with 50 mEq sodium bicarbonate ampule at 125 cc an hour Currently not requiring antihypertensives and/or vasopressors Serial lactates until clear.. Resp: Hypoxia Nasal cannula to maintain saturations greater than or equal to 92% Incentive spirometry while awake Chest x-ray revealed no acute cardiopulmonary findings GI: Hypo-albumin anemia Continue renal diet Pantoprazole for GI prophylaxis Docusate sodium/senna 1 tablet twice a day for bowel regimen Zofran as needed for nausea : No indication for Gimenez catheter placement Endo: Sliding-scale insulin will be discontinued Renal: Acute kidney injury Left renal cyst Decreased creatinine to 2.27-1.37 Unclear inciting event. Check urine eosinophil/electrolytes. Kidney ultrasound revealed no hydronephrosis. Left renal cyst Increase crystalloid resuscitation see above Monitor urine output Accurate I's and O's Follow BMP in a.m. Avoid nephrotoxic drugs Heme: Thrombocytopenia Low fibrinogen Elevated d-dimer Recommended to repeat laboratories within one hour after receiving CroFab bolus. INR: 1.4. PTT 23. Fibrinogen 61. D-dimer 2.1 Received 1 cryoprecipitate yesterday. MSK: Diamondback snake bite Serial circumferential measurements every 15 minutes until swelling stops. Snake bite circumference at site decreased from 42.5-42 cm 10 cm Above snake bite has increased from 38.5-38 cm. Has completed maintenance dose of CroFab 2 g IV infusion 1 hour every 6 hours 3 dosages. Check laboratories as above in heme section Status post tetanus diphtheria tox 0.5 mg IM 1 ID: Monitor for infection FEN: Replacing electrolytes as clinically indicated Access - Utilize peripheral IV. Central line if indicated Prophylaxis - GI - pantoprazole - DVT - SCD/no pharmacological prophylaxis in light of DIC Level II follow-up Gus Barrett MD Nov 18, 2016 10:32
[2016-11-18] MEDS: PANTOPRAZOLE SODIUM 40 MG VIAL IV SCH (10:57)
[2016-11-18] MEDS: SODIUM CHLORIDE 0.9% FLUSH 10 ML FLUSH IV FLUSH SCH ×2 (10:57→19:49)
[2016-11-18] MEDS: SODIUM BICARBONATE 8.4% INJ 50 MEQ in SODIUM CHLOR 0.45% 1000 ML INJ 1,000 ML IV SCH ×2 (11:37→19:49)
--- NOTE | 2016-11-18 12:18 | PD.TRANSFR ---
Transfer Summary Admission Date Nov 16, 2016 at 17:44 Transfer Date: Nov 18, 2016 Admitting Diagnosis Rattlesnake bite Diagnoses: (1) Toxic effect of rattlesnake venom Diagnosis: Principal (2) History of hypertension Diagnosis: Principal (3) Thrombocytopenia Diagnosis: Principal (4) Fibrinogen decreased Diagnosis: Principal (5) Elevated d-dimer Diagnosis: Principal Significant Findings Status post 24 vials CroFab Transfer Summary/Subjective Please see below. Objective Vital Signs Date Time Temp Pulse Resp B/P Pulse Ox O2 Delivery O2 Flow Rate FiO2 11/18/16 11:37 18 11/18/16 11:00 122 11/18/16 09:30 96 Nasal Cannula 3.00 11/18/16 08:00 98.7 117/60 Intake and Output 11/17/16 11/17/16 11/18/16 08:00 16:00 00:00 Intake Total 2122 ml 3008 ml 565 ml Output Total 1200 ml 500 ml Balance 2122 ml 1808 ml 65 ml Result Diagram: 11/18/16 0809 11/18/16 0512 Imaging Last Impressions Renal Ultrasound 11/17/16 0000 Signed Impressions: Service Date/Time: October 16:39 - CONCLUSION: Normal examination except for cyst within the left kidney. Paul Chi MD Tibia/Fibula X-Ray 11/16/16 0000 Signed Impressions: Service Date/Time: Wednesday, November 16, 2016 15:36 - CONCLUSION: Unremarkable examination of the left tibia. No foreign object is identified. Paul Chi MD Objective Remarks GENERAL: 66-year-old male, resting in bed in mild distress secondary to pain SKIN: Warm and dry. Noted diamondback snake bite to the anterior tibia approximately 2 x 2 centimeters in size some oozing. Increasing evolving ecchymoses throughout the left lower extremity from below the knee to toes. 42.5 cm circumference at snake bite site. 10 cm above 38 cm. Circumference HEAD: Atraumatic. Normocephalic. EYES: Pupils equal and round around 3 mm bilaterally and reactive. No scleral icterus. No injection or drainage. ENT: No nasal bleeding or discharge. Mucous membranes pink and moist. NECK: Trachea midline. No JVD. CARDIOVASCULAR: Tachycardic, RR. S1, S2. No S4. Without murmurs. RESPIRATORY: Clear to auscultation. Breath sounds equal bilaterally. GASTROINTESTINAL: Abdomen soft, non-tender, nondistended. Hepatic and splenic margins not palpable. MUSCULOSKELETAL: Extremities with edema as above in the skin section NEUROLOGICAL: Awake and alert. No obvious cranial nerve deficits. Motor grossly within normal limits. Five out of 5 muscle strength in the arms and legs. Normal speech. PSYCHIATRIC: Appropriate mood and affect; insight and judgment normal. A/P Assessment and Plan Neuro/Psych: Pain management's rattlesnake bite Acetaminophen 650 mg by mouth every 6 hours when necessary for fever Hydrocodone/acetaminophen 5/325 one tablet every 4 hours. Pain 1-5 Hydromorphone 0.5-1 mg IV every 2 hours. Pain management 1-10 as well CV: Sinus tachycardia Lactic acidosis - resolving Currently on one half normal saline with 50 mEq sodium bicarbonate ampule at 125 cc an hour Currently not requiring antihypertensives and/or vasopressors Serial lactates until clear.. Resp: Hypoxia Nasal cannula to maintain saturations greater than or equal to 92% Incentive spirometry while awake Chest x-ray revealed no acute cardiopulmonary findings GI: Hypo-albumin anemia Continue renal diet Pantoprazole for GI prophylaxis Docusate sodium/senna 1 tablet twice a day for bowel regimen Zofran as needed for nausea : No indication for Gimenez catheter placement Endo: Sliding-scale insulin will be discontinued Renal: Acute kidney injury Left renal cyst Decreased creatinine to 2.27-1.37 Unclear inciting event. Check urine eosinophil/electrolytes. Kidney ultrasound revealed no hydronephrosis. Left renal cyst Increase crystalloid resuscitation see above Monitor urine output Accurate I's and O's Follow BMP in a.m. Avoid nephrotoxic drugs Heme: Thrombocytopenia Low fibrinogen Elevated d-dimer Recommended to repeat laboratories within one hour after receiving CroFab bolus. INR: 1.4. PTT 23. Fibrinogen 61. D-dimer 2.1 Received 1 cryoprecipitate yesterday. MSK: Diamondback snake bite Serial circumferential measurements every 15 minutes until swelling stops. Snake bite circumference at site decreased from 42.5-42 cm 10 cm Above snake bite has increased from 38.5-38 cm. Has completed maintenance dose of CroFab 2 g IV infusion 1 hour every 6 hours 3 dosages. Check laboratories as above in heme section Status post tetanus diphtheria tox 0.5 mg IM 1 ID: Monitor for infection FEN: Replacing electrolytes as clinically indicated Access - Utilize peripheral IV. Central line if indicated Prophylaxis - GI - pantoprazole - DVT - SCD/no pharmacological prophylaxis in light of DIC Level II follow-up Gus Barrett MD Nov 18, 2016 12:18
[2016-11-18] MEDS: POTASSIUM PHOSPHATE/SODIUM PHOSPHATE 250 MG TAB PO SCH ×2 (13:05→19:48)
[2016-11-18 14:03] LABS: PLATELET COUNT 165 TH/MM3 (150-450); REVIEW FLAG FINAL
[2016-11-18 14:17] LABS: APTT (PATIENT) 21.3 SEC (24.3-30.1); PROTHROMBIN TIME - PATIENT 10.8 SEC (9.8-11.6)
[2016-11-18] MEDS ORDERED: diphenhydrAMINE HCL 25 MG CAP PO ONE (14:45)
[2016-11-18] MEDS ORDERED: ACETAMINOPHEN 500 MG CPLT PO ONE (14:45)
[2016-11-18 21:26] LABS: HEMATOCRIT 21.1 % (39.0-51.0); PLATELET COUNT 140 TH/MM3 (150-450); REVIEW FLAG FINAL
[2016-11-18 21:49] LABS: PROTHROMBIN TIME - PATIENT 10.5 SEC (9.8-11.6)
[2016-11-18 21:52] LABS: APTT (PATIENT) 21.3 SEC (24.3-30.1)
[2016-11-19] VITALS (22 sets, daily range): BP systolic 126–151; BP diastolic 65–86; PULSE 11–125; RESP 13–32; TEMP 98.6–99.4; O2SAT 93–99
[2016-11-19 01:04] LABS: PLATELET COUNT 138 TH/MM3 (150-450)
[2016-11-19 01:10] LABS: REVIEW FLAG FINAL
[2016-11-19 01:13] LABS: HEMATOCRIT 20.8 % (39.0-51.0)
[2016-11-19 01:27] LABS: APTT (PATIENT) 22.2 SEC (24.3-30.1); PROTHROMBIN TIME - PATIENT 10.7 SEC (9.8-11.6)
[2016-11-19] MEDS: SODIUM BICARBONATE 8.4% INJ 50 MEQ in SODIUM CHLOR 0.45% 1000 ML INJ 1,000 ML IV SCH ×2 (03:53→11:35)
[2016-11-19] MEDS: CHLORHEXIDINE GLUCONATE 2 % 1 PACK (2 CLOTHS) TOP SCH (03:53)
[2016-11-19] MEDS: POTASSIUM PHOSPHATE/SODIUM PHOSPHATE 250 MG TAB PO SCH (03:54)
[2016-11-19] MEDS: HYDROmorphone HCL PF 1 MG/ML VIAL IV PRN ×5 (05:33→21:48)
[2016-11-19 08:14] LABS: APTT (PATIENT) 22.6 SEC (24.3-30.1); PROTHROMBIN TIME - PATIENT 10.6 SEC (9.8-11.6)
[2016-11-19 08:15] LABS: AUTOMATED NEUTROPHIL # 7.6 TH/MM3 (1.8-7.7); BASOPHIL % 0.4 % (0.0-2.0); EOSINOPHIL # 0.1 TH/MM3 (0-0.4); EOSINOPHIL % 0.7 % (0.0-4.0); HEMATOCRIT 21.5 % (39.0-51.0); HEMO FLAGS DIFF FINAL; LYMPH % 18.3 % (9.0-44.0); LYMPHOCYTE # 1.9 TH/MM3 (1.0-4.8); MEAN CELL VOLUME 91.3 FL (80.0-100.0); MEAN CORPUSCULAR HEMOGLOBIN 30.9 PG (27.0-34.0); MEAN CORPUSCULAR HGB CONC 33.8 % (32.0-36.0); MONO % 8.8 % (0.0-8.0); NEUT % 71.8 % (16.0-70.0); PLATELET COUNT 138 TH/MM3 (150-450); RED BLOOD COUNT 2.36 MIL/MM3 (4.50-5.90); WHITE BLOOD COUNT 10.6 TH/MM3 (4.0-11.0)
[2016-11-19 08:48] LABS: ALKALINE PHOSPHATASE 40 U/L (45-117); ALT (GPT) 80 U/L (12-78); ANION GAP 5 MEQ/L (5-15); AST (GOT) 320 U/L (15-37); BICARBONATE 33.1 MEQ/L (21.0-32.0); BLOOD UREA NITROGEN 21 MG/DL (7-18); CHLORIDE 104 MEQ/L (98-107); CREATINE KINASE 6732 U/L (39-308); GLOMERULAR FILTRATION RATE 68 ML/MIN (>89); POTASSIUM 4.3 MEQ/L (3.5-5.1); SODIUM (NA) 142 MEQ/L (136-145); TOTAL BILIRUBIN ADULT 0.5 MG/DL (0.2-1.0)
[2016-11-19] MEDS: DOCUSATE SODIUM 50 MG/SENNA 8.6 MG TAB PO SCH ×2 (08:59→21:00)
[2016-11-19] MEDS: SODIUM CHLORIDE 0.9% FLUSH 10 ML FLUSH IV FLUSH SCH ×2 (08:59→21:00)
[2016-11-19] MEDS: PANTOPRAZOLE SODIUM 40 MG VIAL IV SCH (09:00)
[2016-11-19 09:21] LABS: CKMB 13.9 NG/ML (0.5-3.6)
[2016-11-19 13:48] LABS: HEMATOCRIT 20.7 % (39.0-51.0)
[2016-11-19 13:51] LABS: APTT (PATIENT) 24.2 SEC (24.3-30.1); INTERNATIONAL NORMALIZED RATIO 0.9 RATIO; PROTHROMBIN TIME - PATIENT 10.4 SEC (9.8-11.6)
--- NOTE | 2016-11-19 18:12 | HHI.PR ---
Subjective Remarks low grade temp yesterday afternoon patient c/o pain in left lower extremity which is controlled denies fevers/chills denies cp/sob Objective Vitals Vital Signs Date Time Temp Pulse Resp B/P Pulse Ox O2 Delivery O2 Flow Rate FiO2 11/19/16 17:00 119 17 151/75 97 11/19/16 16:01 98.8 116 27 151/65 97 11/19/16 16:00 117 24 97 11/19/16 16:00 11 11/19/16 15:00 101 20 126/67 95 11/19/16 14:00 105 18 136/67 93 11/19/16 14:00 105 11/19/16 13:00 114 26 146/69 97 11/19/16 12:00 99.1 110 20 132/70 97 11/19/16 12:00 110 11/19/16 11:00 107 13 136/71 96 11/19/16 10:01 111 14 129/71 96 11/19/16 10:00 109 18 95 11/19/16 10:00 109 11/19/16 09:00 122 22 135/82 97 11/19/16 08:00 99.4 112 20 149/86 97 11/19/16 08:00 112 11/19/16 07:45 97 Nasal Cannula 2.00 11/19/16 07:00 101 18 146/74 95 11/19/16 07:00 95 Nasal Cannula 3.00 11/19/16 06:00 103 11/19/16 04:00 125 11/19/16 04:00 99.2 125 27 141/80 99 11/19/16 02:00 98 11/19/16 00:00 102 11/19/16 00:00 98.8 102 16 149/74 95 11/18/16 22:00 109 11/18/16 20:27 98 Nasal Cannula 2.00 11/18/16 20:00 99.3 116 19 148/70 97 11/18/16 20:00 116 11/18/16 19:00 96 Nasal Cannula 3.00 I/O 11/18/16 11/18/16 11/18/16 11/19/16 11/19/16 11/19/16 07:00 15:00 23:00 07:00 15:00 23:00 Intake Total 1025 ml 2448 ml 1008 ml 860 ml 1645 ml Output Total 1200 ml 1100 ml 1300 ml 850 ml 1975 ml Balance -175 ml 1348 ml -292 ml 10 ml -330 ml Intake Oral 50 ml 1250 ml 50 ml 50 ml 400 ml IV Total 975 ml 1198 ml 708 ml 810 ml 1245 ml Packed Cells 250 ml Output Urine Total 1200 ml 1100 ml 1300 ml 850 ml 1975 ml # Voids 5 Result Diagram: 11/19/16 1321 11/19/16 0736 Imaging Last Impressions Renal Ultrasound 11/17/16 0000 Signed Impressions: Service Date/Time: October 16:39 - CONCLUSION: Normal examination except for cyst within the left kidney. Paul Chi MD Tibia/Fibula X-Ray 11/16/16 0000 Signed Impressions: Service Date/Time: Wednesday, November 16, 2016 15:36 - CONCLUSION: Unremarkable examination of the left tibia. No foreign object is identified. Paul Chi MD Objective Remarks GENERAL: 66-year-old male, resting in bed in mild distress secondary to pain SKIN: Warm and dry. Noted diamondback snake bite to the anterior tibia approximately 2 x 2 centimeters in size some oozing. Ecchymoses throughout the left lower extremity from below the knee to toes. 42.5 cm circumference at snake bite site. 10 cm above 38 cm. Circumference HEAD: Atraumatic. Normocephalic. EYES: Pupils equal and round around 3 mm bilaterally and reactive. No scleral icterus. No injection or drainage. ENT: No nasal bleeding or discharge. Mucous membranes pink and moist. NECK: Trachea midline. No JVD. CARDIOVASCULAR: Tachycardic, RR. S1, S2. No S4. Without murmurs. RESPIRATORY: Clear to auscultation. Breath sounds equal bilaterally. GASTROINTESTINAL: Abdomen soft, non-tender, nondistended. Hepatic and splenic margins not palpable. MUSCULOSKELETAL: Extremities with edema as above in the skin section NEUROLOGICAL: Awake and alert. No obvious cranial nerve deficits. Motor grossly within normal limits. Five out of 5 muscle strength in the arms and legs. Normal speech. PSYCHIATRIC: Appropriate mood and affect; insight and judgment normal. Urinary Catheter: No Vascular Central Line Catheter: No A/P Problem List: (1) Toxic effect of rattlesnake venom ICD Code: T63.011A Status: Acute Plan: Diamondback snake bite Continue ICU care Patient with hemolytic anemia status post transfusion of packed red blood cells Continue pain control with acetaminophen, [place], Dilaudid IV. sp Crofab administration sp tetanus diphteria tox 0.5 mg IM x1 (2) Thrombocytopenia ICD Code: D69.6 Status: Acute Plan: Platelet count trending down, Continue to monitor platelets (3) Fibrinogen decreased ICD Code: D68.2 Status: Acute Plan: Due to toxic effect of venom and consumption coagulopathy sp cryoprecipitate infusion Fibrinogen within normal range Continue to monitor (4) Elevated d-dimer ICD Code: R79.89 Status: Acute Plan: Due to consumption coagulopathy. (5) Rhabdomyolysis ICD Code: M62.82 Status: Acute Plan: Due to muscle destruction. Will Dc 1/2 ns with bicarbonate but will start patient on normal saline after PRBC transfusion. ck elevated - continue to monitor. (6) Hemolytic anemia ICD Code: D58.9 Status: Acute Plan: Due to venom toxic effect, DIC Transfuse 1 unit PRBC (7) HTN (hypertension) ICD Code: I10 Status: Acute Plan: BP stable, continue to monitor vital signs. (8) GORDO (acute kidney injury) ICD Code: N17.9 Status: Resolved Plan: Resolved after IV fluid administration. Kidney us - no hydronephrosis Continue to monitor strict I's and O's, monitor BUN/creatinine. (9) Lactic acidosis ICD Code: E87.2 Status: Acute Plan: Resolved after IV fluid administration (10) Sinus tachycardia ICD Code: R00.0 Status: Acute Plan: Ekg on admission reviewed by me shows sinus tachycardia. Continue IV fluids Likely reactive to anemia, dehydration, continue to monitor on telemetry Assessment and Plan GI prophylaxis: Continue PPI, Zofran for nausea, senna Colace to prevent constipation. DVT prophylaxis: No SCDs given snake bite local injury, no chemoprophylaxis. Problem Qualifiers (1) Toxic effect of rattlesnake venom: Qualified Code: T63.011D - Toxic effect of rattlesnake venom, accidental or unintentional, subsequent encounter (2) Rhabdomyolysis: Qualified Code: M62.82 - Non-traumatic rhabdomyolysis (3) Hemolytic anemia: Qualified Code: D59.6 - Hemoglobinuria due to hemolysis from other external causes Azar Brewer MD Nov 19, 2016 18:12
[2016-11-19] MEDS ORDERED: diphenhydrAMINE HCL 25 MG CAP PO PRN (18:15)
[2016-11-19] MEDS ORDERED: ACETAMINOPHEN 325 MG TAB PO PRN (18:15)
[2016-11-19] MEDS ORDERED: SODIUM CHLOR 0.9% 250 ML INJ 250 ML IV ONE (18:15)
[2016-11-19 20:04] LABS: PROTHROMBIN TIME - PATIENT 10.7 SEC (9.8-11.6)
[2016-11-19 20:23] LABS: HEMATOCRIT 20.8 % (39.0-51.0)
[2016-11-20] VITALS (23 sets, daily range): BP systolic 139–143; BP diastolic 64–82; PULSE 100–133; RESP 13–27; TEMP 97.2–100.2; O2SAT 89–95
[2016-11-20] MEDS: HYDROmorphone HCL PF 1 MG/ML VIAL IV PRN ×5 (02:10→21:38)
[2016-11-20] MEDS: CHLORHEXIDINE GLUCONATE 2 % 1 PACK (2 CLOTHS) TOP SCH (04:00)
[2016-11-20 04:35] LABS: HEMATOCRIT 23.4 % (39.0-51.0); MEAN CELL VOLUME 89.2 FL (80.0-100.0); MEAN CORPUSCULAR HEMOGLOBIN 31.1 PG (27.0-34.0); MEAN CORPUSCULAR HGB CONC 34.9 % (32.0-36.0); PLATELET COUNT 125 TH/MM3 (150-450); RED BLOOD COUNT 2.62 MIL/MM3 (4.50-5.90); RED CELL DISTRIBUTION WIDTH 14.7 % (11.6-17.2); WHITE BLOOD COUNT 10.3 TH/MM3 (4.0-11.0)
[2016-11-20 04:43] LABS: HEMO FLAGS AUTO DIFF
[2016-11-20 05:02] LABS: ANION GAP 4 MEQ/L (5-15); BICARBONATE 30.9 MEQ/L (21.0-32.0); BLOOD UREA NITROGEN 15 MG/DL (7-18); CHLORIDE 103 MEQ/L (98-107); MAGNESIUM 2.2 MG/DL (1.5-2.5); POTASSIUM 4.2 MEQ/L (3.5-5.1); SODIUM (NA) 138 MEQ/L (136-145)
[2016-11-20 05:07] LABS: ALKALINE PHOSPHATASE 41 U/L (45-117); ALT (GPT) 77 U/L (12-78); AST (GOT) 258 U/L (15-37); GLOMERULAR FILTRATION RATE 77 ML/MIN (>89); TOTAL BILIRUBIN ADULT 0.7 MG/DL (0.2-1.0)
[2016-11-20 06:38] LABS: BASOPHILS 1 % (0-2); EOSINOPHILS 3 % (0-4); NEUTROPHIL # MANUAL DIFF 7.3 TH/MM3 (1.8-7.7); POLYS (SEG NEUTROPHILS) 71 % (16-70); WBC DIFF SAMPLE 100
[2016-11-20 06:39] LABS: PLATELET ESTIMATE SMEAR LOW (NORMAL); PLATELET MORPHOLOGY NORMAL (NORMAL); SCAN/DIFF FINAL DIFF MANUAL
[2016-11-20] MEDS: PANTOPRAZOLE SODIUM 40 MG VIAL IV SCH (07:40)
[2016-11-20] MEDS: SODIUM CHLORIDE 0.9% FLUSH 10 ML FLUSH IV FLUSH SCH ×2 (07:41→21:00)
[2016-11-20] MEDS: DOCUSATE SODIUM 50 MG/SENNA 8.6 MG TAB PO SCH ×2 (07:41→21:00)
[2016-11-20] MEDS: SODIUM CHLOR 0.9% 1000 ML INJ 1,000 ML IV SCH ×2 (09:45→19:45)
[2016-11-20 11:25] LABS: AUTOMATED NEUTROPHIL # 8.3 TH/MM3 (1.8-7.7); BASOPHIL # 0.1 TH/MM3 (0-0.2); BASOPHIL % 0.6 % (0.0-2.0); EOSINOPHIL # 0.1 TH/MM3 (0-0.4); EOSINOPHIL % 1.2 % (0.0-4.0); HEMATOCRIT 24.4 % (39.0-51.0); HEMO FLAGS DIFF FINAL; LYMPH % 16.2 % (9.0-44.0); LYMPHOCYTE # 1.8 TH/MM3 (1.0-4.8); MEAN CORPUSCULAR HEMOGLOBIN 30.8 PG (27.0-34.0); MEAN CORPUSCULAR HGB CONC 34.6 % (32.0-36.0); MONO % 8.7 % (0.0-8.0); NEUT % 73.3 % (16.0-70.0); PLATELET COUNT 140 TH/MM3 (150-450); RED BLOOD COUNT 2.75 MIL/MM3 (4.50-5.90); RED CELL DISTRIBUTION WIDTH 14.9 % (11.6-17.2); WHITE BLOOD COUNT 11.3 TH/MM3 (4.0-11.0)
[2016-11-20 11:47] LABS: APTT (PATIENT) 22.7 SEC (24.3-30.1); PROTHROMBIN TIME - PATIENT 10.6 SEC (9.8-11.6)
--- NOTE | 2016-11-20 12:14 | HHI.PR ---
Subjective Remarks c/o pain in LLE requesting PT denies cp/sob denies fevers/chills Objective Vitals Vital Signs Date Time Temp Pulse Resp B/P Pulse Ox O2 Delivery O2 Flow Rate FiO2 11/20/16 07:48 94 11/20/16 06:00 116 11/20/16 04:00 97.8 113 21 94 11/20/16 04:00 113 11/20/16 02:40 21 11/20/16 02:00 104 11/20/16 00:00 97.2 102 13 142/68 90 11/20/16 00:00 102 11/19/16 22:00 107 11/19/16 20:00 98.6 117 32 98 11/19/16 20:00 117 11/19/16 19:18 96 Nasal Cannula 2.00 11/19/16 19:00 96 Nasal Cannula 3.00 11/19/16 18:00 104 11/19/16 17:00 119 17 151/75 97 11/19/16 16:01 98.8 116 27 151/65 97 11/19/16 16:00 117 24 97 11/19/16 16:00 11 11/19/16 15:00 101 20 126/67 95 11/19/16 14:00 105 18 136/67 93 11/19/16 14:00 105 11/19/16 13:00 114 26 146/69 97 I/O 11/19/16 11/19/16 11/19/16 11/20/16 11/20/16 11/20/16 07:00 15:00 23:00 07:00 15:00 23:00 Intake Total 860 ml 1645 ml 1042 ml 500 ml Output Total 850 ml 1975 ml 1400 ml 950 ml Balance 10 ml -330 ml -358 ml -450 ml Intake Oral 50 ml 400 ml 120 ml 120 ml IV Total 810 ml 1245 ml 672 ml 380 ml Packed Cells 250 ml Output Urine Total 850 ml 1975 ml 1400 ml 950 ml # Voids 5 7 6 Result Diagram: 11/20/16 1110 11/20/16 0402 Imaging Last Impressions Renal Ultrasound 11/17/16 0000 Signed Impressions: Service Date/Time: October 16:39 - CONCLUSION: Normal examination except for cyst within the left kidney. Paul Chi MD Tibia/Fibula X-Ray 11/16/16 0000 Signed Impressions: Service Date/Time: Wednesday, November 16, 2016 15:36 - CONCLUSION: Unremarkable examination of the left tibia. No foreign object is identified. Paul Chi MD Objective Remarks GENERAL: 66-year-old male, resting in bed in mild distress secondary to pain SKIN: Warm and dry. Noted diamondback snake bite to the anterior tibia approximately 2 x 2 centimeters in size some oozing. Ecchymoses throughout the left lower extremity from below the knee to toes. 42.5 cm circumference at snake bite site. 10 cm above 38 cm. Circumference HEAD: Atraumatic. Normocephalic. EYES: Pupils equal and round around 3 mm bilaterally and reactive. No scleral icterus. No injection or drainage. ENT: No nasal bleeding or discharge. Mucous membranes pink and moist. NECK: Trachea midline. No JVD. CARDIOVASCULAR: Tachycardic, RR. S1, S2. No S4. Without murmurs. RESPIRATORY: Clear to auscultation. Breath sounds equal bilaterally. GASTROINTESTINAL: Abdomen soft, non-tender, nondistended. Hepatic and splenic margins not palpable. MUSCULOSKELETAL: Extremities with edema as above in the skin section NEUROLOGICAL: Awake and alert. No obvious cranial nerve deficits. Motor grossly within normal limits. Five out of 5 muscle strength in the arms and legs. Normal speech. PSYCHIATRIC: Appropriate mood and affect; insight and judgment normal. Medications and IVs Current Medications Medications (Trade) Dose Ordered Sig/Emil Route Start Time Stop Time Status Last Admin (NS Flush) 2 ml UNSCH PRN IV FLUSH 11/16/16 18:00 (NS Flush) 2 ml BID IV FLUSH 11/16/16 21:00 11/20/16 07:41 (Tylenol) 650 mg Q6H PRN PO 11/16/16 18:00 ([place] 5-325 Mg) 1 tab Q4H PRN PO 11/16/16 18:00 (Protonix Inj) 40 mg DAILY IV 11/17/16 09:00 11/20/16 07:40 (Zofran Inj) 4 mg Q6H PRN IV 11/16/16 18:00 11/16/16 22:51 Miscellaneous Information 1 Q361D XX 11/16/16 18:00 (Chlorhexidine 2% Cloth) 3 pack Taper DAILY@04 TOP 11/17/16 04:00 11/13/17 03:59 11/20/16 04:00 (Chlorhexidine 2% Cloth) 3 pack UNSCH PRN TOP 11/16/16 18:00 (Ana-Colace) 1 tab BID PO 11/16/16 21:00 11/20/16 07:41 (Milk Of Magnesia Liq) 30 ml Q12H PRN PO 11/16/16 18:00 (Senokot) 17.2 mg Q12H PRN PO 11/16/16 18:00 (Dulcolax Supp) 10 mg DAILY PRN RECTAL 11/16/16 18:00 (Lactulose Liq) 30 ml DAILY PRN PO 11/16/16 18:00 (Dilaudid Pf Inj) 1 mg Q2H PRN IV 11/17/16 00:00 11/20/16 13:13 (Dilaudid Pf Inj) 0.5 mg Q2H PRN IV PUSH 11/16/16 22:30 (D50w (Vial) Inj) 50 ml UNSCH PRN IV 11/17/16 03:30 (Glucagon Inj) 1 mg UNSCH PRN OTHER 11/17/16 03:30 Ondansetron HCl 4 mg 4 mg Q6HR PRN IV PUSH 11/17/16 17:00 (NS 1000 ml Inj) 1,000 ml @ 100 mls/hr Q10H IV 11/20/16 09:45 11/20/16 09:45 A/P Problem List: (1) Toxic effect of rattlesnake venom ICD Code: T63.011A Status: Acute (2) Thrombocytopenia ICD Code: D69.6 Status: Acute (3) Fibrinogen decreased ICD Code: D68.2 Status: Acute (4) Elevated d-dimer ICD Code: R79.89 Status: Acute (5) Rhabdomyolysis ICD Code: M62.82 Status: Acute (6) Hemolytic anemia ICD Code: D58.9 Status: Acute (7) HTN (hypertension) ICD Code: I10 Status: Acute (8) GORDO (acute kidney injury) ICD Code: N17.9 Status: Resolved (9) Lactic acidosis ICD Code: E87.2 Status: Acute (10) Sinus tachycardia ICD Code: R00.0 Status: Acute Assessment and Plan (1) Toxic effect of rattlesnake venom Plan: Diamond[place] snake bite Continue ICU care Patient with hemolytic anemia status post transfusion of packed red blood cells Continue pain control with acetaminophen, [place], Dilaudid IV. sp Crofab administration sp tetanus diphteria tox 0.5 mg IM x1 (2) Thrombocytopenia Plan: Platelet count trending down, Continue to monitor platelets no obvious bleeding (3) Fibrinogen decreased Plan: Due to toxic effect of venom and consumption coagulopathy sp cryoprecipitate infusion Fibrinogen within normal range Continue to monitor (4) Elevated d-dimer Plan: Due to consumption coagulopathy. (5) Rhabdomyolysis Plan: Due to muscle destruction. Will Dc 1/2 ns with bicarbonate but will start patient on normal saline after PRBC transfusion. CK still elevated - Start on Normal saline @ 100 ml/hr (6) Hemolytic anemia Plan: Due to venom toxic effect, DIC Post blood transfusion of 2 units of PRBCs. Continue to monitor hemoglobin (7) HTN (hypertension) Plan: BP stable, continue to monitor vital signs. (8) GORDO (acute kidney injury) Plan: Resolved after IV fluid administration. Kidney us - no hydronephrosis Continue to monitor strict I's and O's, monitor BUN/creatinine. (9) Lactic acidosis Plan: Resolved after IV fluid administration (10) Sinus tachycardia Plan: Ekg on admission reviewed by me shows sinus tachycardia. Continue IV fluids Likely reactive to anemia, dehydration, continue to monitor on telemetry GI prophylaxis: Continue PPI, Zofran for nausea, senna Colace to prevent constipation. DVT prophylaxis: No SCDs given snake bite local injury, no chemoprophylaxis. Problem Qualifiers (1) Toxic effect of rattlesnake venom: Qualified Code: T63.011D - Toxic effect of rattlesnake venom, accidental or unintentional, subsequent encounter (2) Rhabdomyolysis: Qualified Code: M62.82 - Non-traumatic rhabdomyolysis (3) Hemolytic anemia: Qualified Code: D59.6 - Hemoglobinuria due to hemolysis from other external causes Azar Brewer MD Nov 20, 2016 12:14
[2016-11-20 12:21] LABS: CKMB 4.7 NG/ML (0.5-3.6)
[2016-11-21] VITALS (10 sets, daily range): BP systolic 130–146; BP diastolic 76–84; PULSE 87–111; RESP 12–20; TEMP 97.4–98.8; O2SAT 90–97
[2016-11-21] MEDS: CHLORHEXIDINE GLUCONATE 2 % 1 PACK (2 CLOTHS) TOP SCH (01:26)
[2016-11-21] MEDS: HYDROmorphone HCL PF 1 MG/ML VIAL IV PRN ×6 (01:32→20:35)
[2016-11-21 04:39] LABS: AUTOMATED NEUTROPHIL # 7.1 TH/MM3 (1.8-7.7); BASOPHIL # 0.1 TH/MM3 (0-0.2); BASOPHIL % 0.7 % (0.0-2.0); EOSINOPHIL # 0.4 TH/MM3 (0-0.4); EOSINOPHIL % 3.4 % (0.0-4.0); HEMATOCRIT 23.3 % (39.0-51.0); HEMO FLAGS DIFF FINAL; LYMPH % 21.2 % (9.0-44.0); LYMPHOCYTE # 2.3 TH/MM3 (1.0-4.8); MEAN CELL VOLUME 89.5 FL (80.0-100.0); MEAN CORPUSCULAR HEMOGLOBIN 31.1 PG (27.0-34.0); MEAN CORPUSCULAR HGB CONC 34.7 % (32.0-36.0); MONO % 9.9 % (0.0-8.0); NEUT % 64.8 % (16.0-70.0); PLATELET COUNT 116 TH/MM3 (150-450); RED CELL DISTRIBUTION WIDTH 14.7 % (11.6-17.2); WHITE BLOOD COUNT 10.9 TH/MM3 (4.0-11.0)
[2016-11-21 04:45] LABS: APTT (PATIENT) 25.9 SEC (24.3-30.1); INTERNATIONAL NORMALIZED RATIO 0.9 RATIO; PROTHROMBIN TIME - PATIENT 10.3 SEC (9.8-11.6)
[2016-11-21 05:00] LABS: ANION GAP 5 MEQ/L (5-15); AST (GOT) 240 U/L (15-37); BICARBONATE 28.7 MEQ/L (21.0-32.0); BLOOD UREA NITROGEN 14 MG/DL (7-18); CHLORIDE 103 MEQ/L (98-107); GLOMERULAR FILTRATION RATE 79 ML/MIN (>89); MAGNESIUM 2.2 MG/DL (1.5-2.5); POTASSIUM 4.1 MEQ/L (3.5-5.1); SODIUM (NA) 137 MEQ/L (136-145)
[2016-11-21] MEDS: SODIUM CHLOR 0.9% 1000 ML INJ 1,000 ML IV SCH ×2 (05:05→15:55)
[2016-11-21 05:15] LABS: ALKALINE PHOSPHATASE 44 U/L (45-117); ALT (GPT) 83 U/L (12-78); CREATINE KINASE 4579 U/L (39-308); TOTAL BILIRUBIN ADULT 0.7 MG/DL (0.2-1.0)
[2016-11-21 05:32] LABS: CKMB 2.8 NG/ML (0.5-3.6)
[2016-11-21] MEDS: PANTOPRAZOLE SODIUM 40 MG VIAL IV SCH (08:57)
[2016-11-21] MEDS: SODIUM CHLORIDE 0.9% FLUSH 10 ML FLUSH IV FLUSH SCH ×2 (08:58→20:37)
[2016-11-21] MEDS: DOCUSATE SODIUM 50 MG/SENNA 8.6 MG TAB PO SCH ×3 (09:00→20:34)
--- NOTE | 2016-11-21 13:55 | HHI.PR ---
Subjective Remarks Patient had a low grade fever of 100.2 last night tachycardia improving patient still c/o pain in left lower extremity but this is controlled somewhat lower pulse ox but he denies cough or sob Objective Vitals Vital Signs Date Time Temp Pulse Resp B/P Pulse Ox O2 Delivery O2 Flow Rate FiO2 11/21/16 07:50 94 21 11/21/16 06:00 90 11/21/16 05:39 22 11/21/16 04:00 97.4 94 18 91 11/21/16 04:00 94 11/21/16 02:00 99 11/21/16 00:00 95 11/21/16 00:00 98.1 95 12 90 11/20/16 22:00 101 11/20/16 20:00 111 11/20/16 20:00 97.8 111 27 93 11/20/16 19:00 94 Nasal Cannula 3.00 11/20/16 18:28 98.2 114 27 140/64 94 11/20/16 18:00 103 11/20/16 18:00 103 14 92 11/20/16 17:00 101 18 93 11/20/16 16:00 111 24 92 11/20/16 16:00 111 11/20/16 15:00 110 19 94 11/20/16 14:00 118 27 94 11/20/16 14:00 118 I/O 11/20/16 11/20/16 11/20/16 11/21/16 11/21/16 11/21/16 07:00 15:00 23:00 07:00 15:00 23:00 Intake Total 500 ml 535 ml 990 ml 1965 ml Output Total 950 ml 600 ml 1700 ml 900 ml Balance -450 ml -65 ml -710 ml 1065 ml Intake Oral 120 ml 280 ml 360 ml 480 ml IV Total 380 ml 255 ml 630 ml 1485 ml Output Urine Total 950 ml 600 ml 1700 ml 900 ml # Voids 6 4 5 4 Result Diagram: 11/21/16 0343 11/21/16 0343 Imaging Last Impressions Renal Ultrasound 11/17/16 0000 Signed Impressions: Service Date/Time: October 16:39 - CONCLUSION: Normal examination except for cyst within the left kidney. Paul Chi MD Tibia/Fibula X-Ray 11/16/16 0000 Signed Impressions: Service Date/Time: Wednesday, November 16, 2016 15:36 - CONCLUSION: Unremarkable examination of the left tibia. No foreign object is identified. Paul Chi MD Objective Remarks GENERAL: 66-year-old male, resting in bed in mild distress secondary to pain SKIN: Warm and dry. Noted diamondback snake bite to the anterior tibia approximately 2 x 2 centimeters in size, no oozing. Ecchymoses throughout the left lower extremity from below the knee to toes. 42.5 cm circumference at snake bite site. 10 cm above 38 cm. Circumference HEAD: Atraumatic. Normocephalic. EYES: Pupils equal and round around 3 mm bilaterally and reactive. No scleral icterus. No injection or drainage. ENT: No nasal bleeding or discharge. Mucous membranes pink and moist. NECK: Trachea midline. No JVD. CARDIOVASCULAR: Tachycardic, RR. S1, S2. No S4. Without murmurs. RESPIRATORY: Clear to auscultation. Breath sounds equal bilaterally. GASTROINTESTINAL: Abdomen soft, non-tender, nondistended. Hepatic and splenic margins not palpable. MUSCULOSKELETAL: Extremities with edema as above in the skin section. There is new erythema over at the anterior [place] with warmth to palpation. NEUROLOGICAL: Awake and alert. No obvious cranial nerve deficits. Motor grossly within normal limits. Five out of 5 muscle strength in the arms and legs. Normal speech. PSYCHIATRIC: Appropriate mood and affect; insight and judgment normal. Procedures none Medications and IVs Current Medications Medications (Trade) Dose Ordered Sig/Emil Route Start Time Stop Time Status Last Admin (NS Flush) 2 ml UNSCH PRN IV FLUSH 11/16/16 18:00 (NS Flush) 2 ml BID IV FLUSH 11/16/16 21:00 11/21/16 08:58 (Tylenol) 650 mg Q6H PRN PO 11/16/16 18:00 11/21/16 13:23 ([place] 5-325 Mg) 1 tab Q4H PRN PO 11/16/16 18:00 (Protonix Inj) 40 mg DAILY IV 11/17/16 09:00 11/21/16 08:57 (Zofran Inj) 4 mg Q6H PRN IV 11/16/16 18:00 11/16/16 22:51 Miscellaneous Information 1 Q361D XX 11/16/16 18:00 (Chlorhexidine 2% Cloth) 3 pack Taper DAILY@04 TOP 11/17/16 04:00 11/13/17 03:59 11/21/16 01:26 (Chlorhexidine 2% Cloth) 3 pack UNSCH PRN TOP 11/16/16 18:00 (Ana-Colace) 1 tab BID PO 11/16/16 21:00 11/21/16 13:23 (Milk Of Magnesia Liq) 30 ml Q12H PRN PO 11/16/16 18:00 (Senokot) 17.2 mg Q12H PRN PO 11/16/16 18:00 (Dulcolax Supp) 10 mg DAILY PRN RECTAL 11/16/16 18:00 (Lactulose Liq) 30 ml DAILY PRN PO 11/16/16 18:00 (Dilaudid Pf Inj) 1 mg Q2H PRN IV 11/17/16 00:00 11/21/16 12:57 (Dilaudid Pf Inj) 0.5 mg Q2H PRN IV PUSH 11/16/16 22:30 (D50w (Vial) Inj) 50 ml UNSCH PRN IV 11/17/16 03:30 (Glucagon Inj) 1 mg UNSCH PRN OTHER 11/17/16 03:30 Ondansetron HCl 4 mg 4 mg Q6HR PRN IV PUSH 11/17/16 17:00 Sodium Chloride 1,000 ml @ 100 mls/hr Q10H IV 11/20/16 09:45 11/21/16 05:05 (Ancef 2 Gm Premix) 50 ml @ 100 mls/hr Q8H IV 11/21/16 14:00 Urinary Catheter: No Vascular Central Line Catheter: No A/P Problem List: (1) Toxic effect of rattlesnake venom ICD Code: T63.011A Status: Acute (2) Thrombocytopenia ICD Code: D69.6 Status: Acute (3) Fibrinogen decreased ICD Code: D68.2 Status: Acute (4) Elevated d-dimer ICD Code: R79.89 Status: Acute (5) Rhabdomyolysis ICD Code: M62.82 Status: Acute (6) Hemolytic anemia ICD Code: D58.9 Status: Acute (7) HTN (hypertension) ICD Code: I10 Status: Acute (8) GORDO (acute kidney injury) ICD Code: N17.9 Status: Resolved (9) Lactic acidosis ICD Code: E87.2 Status: Acute (10) Sinus tachycardia ICD Code: R00.0 Status: Acute (11) Low grade fever ICD Code: R50.9 Status: Acute Plan: Patient had a tmax of 100.2 F last night. Possibly due to superimposed cellulitis on affected left lower extremity. I will start empiric cefazolin IV and continue to monitor vital signs. (12) Generalized weakness ICD Code: R53.1 Status: Acute Plan: The patient states he feels very weak. Physical therapy has been consulted. Efforts appreciated. Assessment and Plan (1) Toxic effect of rattlesnake venom Plan: [place] snake bite admitted to the intensive care unit, initially under the care of the payroll and benefits coordinator. Patient with hemolytic anemia status post transfusion of packed red blood cells Continue pain control with acetaminophen, [place], Dilaudid IV. sp Crofab administration sp tetanus diphteria tox 0.5 mg IM x1 (2) Thrombocytopenia Plan: Platelet count lower than previous day. Dropped from 140 k to 116k. (3) Fibrinogen decreased Plan: Due to toxic effect of venom and consumption coagulopathy sp cryoprecipitate infusion Fibrinogen within normal range Continue to monitor (4) Elevated d-dimer Plan: Due to consumption coagulopathy. (5) Rhabdomyolysis Plan: Due to muscle destruction. Will Dc 1/2 ns with bicarbonate but will start patient on normal saline after PRBC transfusion. CK still elevated but trending down 5263 --> 4579, continue with IV fluids. (6) Hemolytic anemia Plan: Due to venom toxic effect, DIC Status Post blood transfusion of 2 units of PRBCs. Hemoglobin slightly lower from previous day dropped from 8.5 to 8.1 Continue to monitor hemoglobin (7) HTN (hypertension) Plan: BP stable, continue to monitor vital signs. (8) GORDO (acute kidney injury) Plan: Resolved after IV fluid administration. Kidney us - no hydronephrosis Continue to monitor strict I's and O's, monitor BUN/creatinine. (9) Lactic acidosis Plan: Resolved after IV fluid administration (10) Sinus tachycardia Plan: Ekg on admission reviewed by me shows sinus tachycardia. Continue IV fluids - seems to be slowly improving Likely reactive to anemia, dehydration, continue to monitor on telemetry GI prophylaxis: Continue PPI, Zofran for nausea, senna Colace to prevent constipation. DVT prophylaxis: No SCDs given snake bite local injury, no chemoprophylaxis. Discharge Planning ok to tranfer to the medical floor. Problem Qualifiers (1) Toxic effect of rattlesnake venom: Qualified Code: T63.011D - Toxic effect of rattlesnake venom, accidental or unintentional, subsequent encounter (2) Rhabdomyolysis: Qualified Code: M62.82 - Non-traumatic rhabdomyolysis (3) Hemolytic anemia: Qualified Code: D59.6 - Hemoglobinuria due to hemolysis from other external causes Azar Brewer MD Nov 21, 2016 13:55
[2016-11-21] MEDS: ceFAZolin 2 GM PREMIX 50 ML IV SCH ×2 (15:29→23:17)
[2016-11-22] VITALS (8 sets, daily range): BP systolic 121–133; BP diastolic 66–75; PULSE 91–110; RESP 16–20; TEMP 98.2–99; O2SAT 91–98
[2016-11-22] MEDS: HYDROmorphone HCL PF 1 MG/ML VIAL IV PRN ×5 (00:57→19:21)
[2016-11-22] MEDS: SODIUM CHLOR 0.9% 1000 ML INJ 1,000 ML IV SCH ×3 (01:27→20:55)
[2016-11-22] MEDS: CHLORHEXIDINE GLUCONATE 2 % 1 PACK (2 CLOTHS) TOP SCH (04:00)
[2016-11-22] MEDS: ceFAZolin 2 GM PREMIX 50 ML IV SCH ×2 (04:49→13:45)
[2016-11-22] MEDS: PANTOPRAZOLE SODIUM 40 MG VIAL IV SCH (08:10)
[2016-11-22] MEDS: DOCUSATE SODIUM 50 MG/SENNA 8.6 MG TAB PO SCH ×2 (08:10→19:21)
[2016-11-22] MEDS: SODIUM CHLORIDE 0.9% FLUSH 10 ML FLUSH IV FLUSH SCH ×2 (08:11→19:20)
[2016-11-22 13:07] LABS: AUTOMATED NEUTROPHIL # 7.1 TH/MM3 (1.8-7.7); BASOPHIL # 0.1 TH/MM3 (0-0.2); BASOPHIL % 0.6 % (0.0-2.0); EOSINOPHIL # 0.5 TH/MM3 (0-0.4); EOSINOPHIL % 4.4 % (0.0-4.0); HEMATOCRIT 23.8 % (39.0-51.0); HEMO FLAGS DIFF FINAL; LYMPH % 17.9 % (9.0-44.0); LYMPHOCYTE # 1.9 TH/MM3 (1.0-4.8); MEAN CELL VOLUME 89.5 FL (80.0-100.0); MEAN CORPUSCULAR HEMOGLOBIN 31.2 PG (27.0-34.0); MEAN CORPUSCULAR HGB CONC 34.9 % (32.0-36.0); MONO % 9.9 % (0.0-8.0); NEUT % 67.2 % (16.0-70.0); PLATELET COUNT 120 TH/MM3 (150-450); RED BLOOD COUNT 2.66 MIL/MM3 (4.50-5.90); RED CELL DISTRIBUTION WIDTH 14.3 % (11.6-17.2); WHITE BLOOD COUNT 10.6 TH/MM3 (4.0-11.0)
[2016-11-22 13:58] LABS: ALT (GPT) 90 U/L (12-78); ANION GAP 7 MEQ/L (5-15); AST (GOT) 189 U/L (15-37); BICARBONATE 27.5 MEQ/L (21.0-32.0); BLOOD UREA NITROGEN 11 MG/DL (7-18); CHLORIDE 103 MEQ/L (98-107); GLOMERULAR FILTRATION RATE 78 ML/MIN (>89); POTASSIUM 4.5 MEQ/L (3.5-5.1); SODIUM (NA) 137 MEQ/L (136-145)
[2016-11-22 14:11] LABS: ALKALINE PHOSPHATASE 57 U/L (45-117); CREATINE KINASE 3292 U/L (39-308); TOTAL BILIRUBIN ADULT 0.4 MG/DL (0.2-1.0)
[2016-11-22 14:33] LABS: CKMB 2.2 NG/ML (0.5-3.6)
--- NOTE | 2016-11-22 15:19 | HHI.PR ---
Subjective Remarks still weak' c/o pain in left lower extremity no further fevers denies diarrhea Objective Vitals Vital Signs Date Time Temp Pulse Resp B/P Pulse Ox O2 Delivery O2 Flow Rate FiO2 11/22/16 12:00 98.6 106 20 121/68 98 11/22/16 08:46 96 21 11/22/16 08:15 Room Air 11/22/16 08:00 98.8 100 20 133/75 95 11/22/16 08:00 91 11/22/16 04:00 98.2 103 18 124/70 95 11/22/16 00:00 98.8 110 18 132/69 95 11/21/16 20:42 Room Air 11/21/16 20:00 98.8 106 18 146/78 97 11/21/16 16:00 Room Air I/O 11/21/16 11/21/16 11/21/16 11/22/16 11/22/16 11/22/16 07:00 15:00 23:00 07:00 15:00 23:00 Intake Total 1965 ml 868 ml 620 ml Output Total 900 ml 1300 ml Balance 1065 ml -432 ml 620 ml Intake Oral 480 ml 240 ml IV Total 1485 ml 628 ml 620 ml Output Urine Total 900 ml 1300 ml # Voids 4 # Bowel Movements 0 Result Diagram: 11/22/16 1224 11/22/16 1224 Imaging Last Impressions Renal Ultrasound 11/17/16 0000 Signed Impressions: Service Date/Time: October 16:39 - CONCLUSION: Normal examination except for cyst within the left kidney. Paul Chi MD Tibia/Fibula X-Ray 11/16/16 0000 Signed Impressions: Service Date/Time: Wednesday, November 16, 2016 15:36 - CONCLUSION: Unremarkable examination of the left tibia. No foreign object is identified. Paul Chi MD Objective Remarks GENERAL: 66-year-old male, resting in bed in mild distress secondary to pain SKIN: Warm and dry. Noted diamondback snake bite to the anterior tibia approximately 2 x 2 centimeters in size, no oozing. Ecchymoses throughout the left lower extremity from below the knee to toes. 42.5 cm circumference at snake bite site. 10 cm above 38 cm. Circumference HEAD: Atraumatic. Normocephalic. EYES: Pupils equal and round around 3 mm bilaterally and reactive. No scleral icterus. No injection or drainage. ENT: No nasal bleeding or discharge. Mucous membranes pink and moist. NECK: Trachea midline. No JVD. CARDIOVASCULAR: Tachycardic, RR. S1, S2. No S4. Without murmurs. RESPIRATORY: Clear to auscultation. Breath sounds equal bilaterally. GASTROINTESTINAL: Abdomen soft, non-tender, nondistended. Hepatic and splenic margins not palpable. MUSCULOSKELETAL: Extremities with edema as above in the skin section. There is new erythema over at the anterior vinson with warmth to palpation which seems to be worst. NEUROLOGICAL: Awake and alert. No obvious cranial nerve deficits. Motor grossly within normal limits. Five out of 5 muscle strength in the arms and legs. Normal speech. PSYCHIATRIC: Appropriate mood and affect; insight and judgment normal. Procedures none Medications and IVs Current Medications Medications (Trade) Dose Ordered Sig/Emil Route Start Time Stop Time Status Last Admin (NS Flush) 2 ml UNSCH PRN IV FLUSH 11/16/16 18:00 (NS Flush) 2 ml BID IV FLUSH 11/16/16 21:00 11/22/16 19:20 (Tylenol) 650 mg Q6H PRN PO 11/16/16 18:00 11/21/16 13:23 (Proctor 5-325 Mg) 1 tab Q4H PRN PO 11/16/16 18:00 (Protonix Inj) 40 mg DAILY IV 11/17/16 09:00 11/22/16 08:10 (Zofran Inj) 4 mg Q6H PRN IV 11/16/16 18:00 11/16/16 22:51 Miscellaneous Information 1 Q361D XX 11/16/16 18:00 (Chlorhexidine 2% Cloth) Taper DAILY@04 TOP 11/17/16 04:00 11/13/17 03:59 11/21/16 01:26 (Chlorhexidine 2% Cloth) 3 pack UNSCH PRN TOP 11/16/16 18:00 (Ana-Colace) 1 tab BID PO 11/16/16 21:00 11/22/16 19:21 (Milk Of Magnesia Liq) 30 ml Q12H PRN PO 11/16/16 18:00 (Senokot) 17.2 mg Q12H PRN PO 11/16/16 18:00 (Dulcolax Supp) 10 mg DAILY PRN RECTAL 11/16/16 18:00 (Lactulose Liq) 30 ml DAILY PRN PO 11/16/16 18:00 (Dilaudid Pf Inj) 1 mg Q2H PRN IV 11/17/16 00:00 11/22/16 19:21 (Dilaudid Pf Inj) 0.5 mg Q2H PRN IV PUSH 11/16/16 22:30 (D50w (Vial) Inj) 50 ml UNSCH PRN IV 11/17/16 03:30 (Glucagon Inj) 1 mg UNSCH PRN OTHER 11/17/16 03:30 Ondansetron HCl 4 mg 4 mg Q6HR PRN IV PUSH 11/17/16 17:00 Sodium Chloride 1,000 ml @ 100 mls/hr Q10H IV 11/20/16 09:45 11/22/16 20:55 (Cleocin Inj/NS Inj) 106 ml @ 212 mls/hr Q8H IV 11/22/16 17:00 11/22/16 18:21 Urinary Catheter: No Vascular Central Line Catheter: No A/P Problem List: (1) Toxic effect of rattlesnake venom ICD Code: T63.011A Status: Acute (2) Thrombocytopenia ICD Code: D69.6 Status: Acute (3) Fibrinogen decreased ICD Code: D68.2 Status: Acute (4) Elevated d-dimer ICD Code: R79.89 Status: Acute (5) Rhabdomyolysis ICD Code: M62.82 Status: Acute (6) Hemolytic anemia ICD Code: D58.9 Status: Acute (7) HTN (hypertension) ICD Code: I10 Status: Acute (8) GORDO (acute kidney injury) ICD Code: N17.9 Status: Resolved (9) Lactic acidosis ICD Code: E87.2 Status: Acute (10) Sinus tachycardia ICD Code: R00.0 Status: Acute (11) Low grade fever ICD Code: R50.9 Status: Acute Plan: Patient had a tmax of 100.2 F night of 11/20. Possibly due to superimposed cellulitis on affected left lower extremity. started on IV Cefazolin on 11/21 to cover for possible superimposed cellulitis of left lower extremity which seems to be worst however. Will DC Cefazolin and [place] coverage starting IV Clindamycin. no further fevers (12) Generalized weakness ICD Code: R53.1 Status: Acute Plan: The patient states he feels very weak. Physical therapy has been consulted. Efforts appreciated. (13) Cellulitis of left lower extremity ICD Code: L03.116 Status: Acute Plan: Initially started on IV Cefazolin on 11/21, however erythmea seems to be worsening - DC Cefazolin and Start IV Clindamycin. Assessment and Plan (1) Toxic effect of rattlesnake venom Plan: Diamondback snake bite admitted to the intensive care unit, initially under the care of the lift mechanic. Patient with hemolytic anemia status post transfusion of packed red blood cells Continue pain control with acetaminophen, [place], Dilaudid IV. sp Crofab administration sp tetanus diphteria tox 0.5 mg IM x1 (2) Thrombocytopenia Plan: Platelet count sightly improved from 116k to 120k. no bleeding observed. continue to monitor platelets. (3) Fibrinogen decreased Plan: Due to toxic effect of venom and consumption coagulopathy sp cryoprecipitate infusion Fibrinogen within normal range (4) Elevated d-dimer Plan: Due to consumption coagulopathy which has resolved. (5) Rhabdomyolysis Plan: Due to muscle destruction. Will Dc 1/2 ns with bicarbonate but will start patient on normal saline after PRBC transfusion. CK still elevated but trending down 5263 --> 4579 ---> 3292, continue with IV fluids. (6) Hemolytic anemia Plan: Due to venom toxic effect, DIC Status Post blood transfusion of 2 units of PRBCs. Hemoglobin stable 8.1 - 8.3 Continue to monitor hemoglobin (7) HTN (hypertension) Plan: BP stable, continue to monitor vital signs. (8) GORDO (acute kidney injury) Plan: Resolved after IV fluid administration. Kidney us - no hydronephrosis Continue to monitor strict I's and O's, monitor BUN/creatinine. (9) Lactic acidosis Plan: Resolved after IV fluid administration (10) Sinus tachycardia Plan: Ekg on admission reviewed by me shows sinus tachycardia. Continue IV fluids - seems to be slowly improving Likely reactive to anemia, dehydration, continue to monitor on telemetry GI prophylaxis: Continue PPI, Zofran for nausea, senna Colace to prevent constipation. DVT prophylaxis: No SCDs given snake bite local injury, no chemoprophylaxis. Discharge Planning ok to tranfer to the medical floor. Problem Qualifiers (1) Toxic effect of rattlesnake venom: Qualified Code: T63.011D - Toxic effect of rattlesnake venom, accidental or unintentional, subsequent encounter (2) Rhabdomyolysis: Qualified Code: M62.82 - Non-traumatic rhabdomyolysis (3) Hemolytic anemia: Qualified Code: D59.6 - Hemoglobinuria due to hemolysis from other external causes Azar Brewer MD Nov 22, 2016 15:19
[2016-11-22] MEDS: CLINDAMYCIN INJ 900 MG in SODIUM CHLORIDE 0.9% INJ 100 ML IV SCH (18:21)
[2016-11-23] VITALS (7 sets, daily range): BP systolic 121–142; BP diastolic 60–73; PULSE 96–106; RESP 18–20; TEMP 98.1–99.9; O2SAT 93–98
[2016-11-23] MEDS: CLINDAMYCIN INJ 900 MG in SODIUM CHLORIDE 0.9% INJ 100 ML IV SCH ×3 (00:26→16:31)
[2016-11-23] MEDS: HYDROmorphone HCL PF 1 MG/ML VIAL IV PRN ×6 (00:28→20:57)
[2016-11-23] MEDS: CHLORHEXIDINE GLUCONATE 2 % 1 PACK (2 CLOTHS) TOP SCH (03:10)
[2016-11-23] MEDS ORDERED: VANCOMYCIN INJ 1,250 MG in SODIUM CHLOR 0.9% 250 ML INJ 250 ML IV SCH (08:15)
[2016-11-23] MEDS ORDERED: Vancomycin Consult Pharmacy 1 EA OTHER SCH (08:15)
[2016-11-23] MEDS: SODIUM CHLORIDE 0.9% FLUSH 10 ML FLUSH IV FLUSH SCH ×2 (08:30→20:56)
[2016-11-23] MEDS: SODIUM CHLOR 0.9% 1000 ML INJ 1,000 ML IV SCH ×3 (08:30→20:54)
[2016-11-23] MEDS: PANTOPRAZOLE SODIUM 40 MG VIAL IV SCH (08:30)
[2016-11-23] MEDS: DOCUSATE SODIUM 50 MG/SENNA 8.6 MG TAB PO SCH ×2 (08:30→20:57)
[2016-11-23 10:24] LABS: MEAN CELL VOLUME 90.8 FL (80.0-100.0); MEAN CORPUSCULAR HEMOGLOBIN 30.3 PG (27.0-34.0); MEAN CORPUSCULAR HGB CONC 33.4 % (32.0-36.0); PLATELET COUNT 166 TH/MM3 (150-450); RED BLOOD COUNT 2.75 MIL/MM3 (4.50-5.90); RED CELL DISTRIBUTION WIDTH 14.3 % (11.6-17.2); REVIEW FLAG FINAL; WHITE BLOOD COUNT 10.9 TH/MM3 (4.0-11.0)
[2016-11-23 10:36] LABS: POTASSIUM 4.1 MEQ/L (3.5-5.1)
[2016-11-23] MEDS: VANCOMYCIN INJ 1,500 MG in SODIUM CHLORID 0.9% 500 ML INJ 500 ML IV SCH ×2 (10:57→20:54)
[2016-11-23 13:15] LABS: BICARBONATE 24.3 MEQ/L (21.0-32.0)
[2016-11-23 13:45] LABS: CKMB 1.4 NG/ML (0.5-3.6)
--- NOTE | 2016-11-23 14:17 | HHI.PR ---
Subjective Remarks patient states left lower extremity looks more erythematous denies fevers/chills still has pain in LLE had a low grade temp with a t max of 99.9 Objective Vitals Vital Signs Date Time Temp Pulse Resp B/P Pulse Ox O2 Delivery O2 Flow Rate FiO2 11/23/16 12:24 105 11/23/16 12:00 98.8 101 20 123/61 94 11/23/16 08:44 Room Air 11/23/16 08:00 99.9 97 20 127/73 93 11/23/16 04:00 98.2 96 18 125/64 96 11/23/16 00:00 98.1 97 18 124/73 95 11/22/16 20:33 96 11/22/16 20:00 99.0 94 16 126/66 91 11/22/16 19:39 Room Air 11/22/16 16:00 98.5 102 20 126/67 95 I/O 11/22/16 11/22/16 11/22/16 11/23/16 11/23/16 11/23/16 07:00 15:00 23:00 07:00 15:00 23:00 Intake Total 620 ml 962 ml 240 ml 240 ml Output Total 600 ml 2200 ml Balance 620 ml 962 ml -360 ml -1960 ml Intake Oral 240 ml 240 ml IV Total 620 ml 962 ml Output Urine Total 600 ml 2200 ml # Bowel Movements 0 0 Result Diagram: 11/23/16 0940 11/23/16 0940 Imaging Last Impressions Renal Ultrasound 11/17/16 0000 Signed Impressions: Service Date/Time: October 16:39 - CONCLUSION: Normal examination except for cyst within the left kidney. Paul Chi MD Tibia/Fibula X-Ray 11/16/16 0000 Signed Impressions: Service Date/Time: Wednesday, November 16, 2016 15:36 - CONCLUSION: Unremarkable examination of the left tibia. No foreign object is identified. Paul Chi MD Objective Remarks GENERAL: 66-year-old male, resting in bed in mild distress secondary to pain SKIN: Warm and dry. Noted diamondback snake bite to the anterior tibia approximately 2 x 2 centimeters in size, no oozing. Ecchymoses throughout the left lower extremity from below the knee to toes. 42.5 cm circumference at snake bite site. 10 cm above 38 cm. Circumference HEAD: Atraumatic. Normocephalic. EYES: Pupils equal and round around 3 mm bilaterally and reactive. No scleral icterus. No injection or drainage. ENT: No nasal bleeding or discharge. Mucous membranes pink and moist. NECK: Trachea midline. No JVD. CARDIOVASCULAR: Tachycardic, RR. S1, S2. No S4. Without murmurs. RESPIRATORY: Clear to auscultation. Breath sounds equal bilaterally. GASTROINTESTINAL: Abdomen soft, non-tender, nondistended. Hepatic and splenic margins not palpable. MUSCULOSKELETAL: Extremities with edema as above in the skin section. There is new erythema over at the anterior vinson with warmth to palpation which seems to be worst. NEUROLOGICAL: Awake and alert. No obvious cranial nerve deficits. Motor grossly within normal limits. Five out of 5 muscle strength in the arms and legs. Normal speech. PSYCHIATRIC: Appropriate mood and affect; insight and judgment normal. Procedures none Medications and IVs Current Medications Medications (Trade) Dose Ordered Sig/Emil Route Start Time Stop Time Status Last Admin (NS Flush) 2 ml UNSCH PRN IV FLUSH 11/16/16 18:00 (NS Flush) 2 ml BID IV FLUSH 11/16/16 21:00 11/23/16 08:30 (Tylenol) 650 mg Q6H PRN PO 11/16/16 18:00 11/21/16 13:23 ([place] 5-325 Mg) 1 tab Q4H PRN PO 11/16/16 18:00 (Protonix Inj) 40 mg DAILY IV 11/17/16 09:00 11/23/16 08:30 (Zofran Inj) 4 mg Q6H PRN IV 11/16/16 18:00 11/16/16 22:51 Miscellaneous Information 1 Q361D XX 11/16/16 18:00 (Chlorhexidine 2% Cloth) Taper DAILY@04 TOP 11/17/16 04:00 11/13/17 03:59 11/21/16 01:26 (Chlorhexidine 2% Cloth) 3 pack UNSCH PRN TOP 11/16/16 18:00 (Ana-Colace) 1 tab BID PO 11/16/16 21:00 11/23/16 08:30 (Milk Of Magnesia Liq) 30 ml Q12H PRN PO 11/16/16 18:00 (Senokot) 17.2 mg Q12H PRN PO 11/16/16 18:00 (Dulcolax Supp) 10 mg DAILY PRN RECTAL 11/16/16 18:00 (Lactulose Liq) 30 ml DAILY PRN PO 11/16/16 18:00 11/23/16 16:38 (Dilaudid Pf Inj) 1 mg Q2H PRN IV 11/17/16 00:00 11/23/16 16:32 (Dilaudid Pf Inj) 0.5 mg Q2H PRN IV PUSH 11/16/16 22:30 (D50w (Vial) Inj) 50 ml UNSCH PRN IV 11/17/16 03:30 (Glucagon Inj) 1 mg UNSCH PRN OTHER 11/17/16 03:30 Ondansetron HCl 4 mg 4 mg Q6HR PRN IV PUSH 11/17/16 17:00 Sodium Chloride 1,000 ml @ 100 mls/hr Q10H IV 11/20/16 09:45 11/22/16 20:55 Clindamycin Phosphate 900 mg/ Sodium Chloride 106 ml @ 212 mls/hr Q8H IV 11/22/16 17:00 11/23/16 16:31 Pharmacy Profile Note 0 ml @ 0 mls/hr UNSCH OTHER 11/23/16 08:15 (Vancomycin Inj/ NS 500 ml Inj) 515 ml @ 250 mls/hr Q12H IV 11/23/16 10:00 11/23/16 10:57 Miscellaneous Information SPECIFIC LAB TO BE DRAWN:VANCOMYCIN TROUGH DATE TO... ONCE ONCE .XX 11/25/16 09:45 11/25/16 09:46 Urinary Catheter: No Vascular Central Line Catheter: No A/P Problem List: (1) Toxic effect of rattlesnake venom ICD Code: T63.011A Status: Acute (2) Thrombocytopenia ICD Code: D69.6 Status: Acute (3) Fibrinogen decreased ICD Code: D68.2 Status: Acute (4) Elevated d-dimer ICD Code: R79.89 Status: Acute (5) Rhabdomyolysis ICD Code: M62.82 Status: Acute (6) Hemolytic anemia ICD Code: D58.9 Status: Acute (7) HTN (hypertension) ICD Code: I10 Status: Acute (8) GORDO (acute kidney injury) ICD Code: N17.9 Status: Resolved (9) Lactic acidosis ICD Code: E87.2 Status: Acute (10) Sinus tachycardia ICD Code: R00.0 Status: Acute (11) Low grade fever ICD Code: R50.9 Status: Acute Plan: Patient had a tmax of 100.2 F night of 11/20. Possibly due to superimposed cellulitis on affected left lower extremity. started on IV Cefazolin on 11/21 to cover for possible superimposed cellulitis of left lower extremity which seems to be worst however. Initially started on Iv Cefazolin which was discontinued on 11/22 and Clindamycin started. 11/23 continue IV clindamycin, I will add IV vancomycin and consult infectious disease since there seems to be worsening of cellulitis. (12) Generalized weakness ICD Code: R53.1 Status: Acute Plan: The patient states he feels very weak. Physical therapy has been consulted. Efforts appreciated. (13) Cellulitis of left lower extremity ICD Code: L03.116 Status: Acute Plan: Initially started on IV Cefazolin on 11/21, however erythema seems to be worsening - DC Cefazolin and Start IV Clindamycin. 11/23 at IV vancomycin and consult infectious disease. Assessment and Plan (1) Toxic effect of rattlesnake venom Plan: Diamondback snake bite admitted to the intensive care unit, initially under the care of the furnace repairer helper. Patient with hemolytic anemia status post transfusion of packed red blood cells Continue pain control with acetaminophen, [place], Dilaudid IV. sp Crofab administration sp tetanus diphteria tox 0.5 mg IM x1 (2) Thrombocytopenia Plan: Platelet count sightly improved from 116k to 120k. no bleeding observed. continue to monitor platelets. (3) Fibrinogen decreased Plan: Due to toxic effect of venom and consumption coagulopathy sp cryoprecipitate infusion Fibrinogen within normal range (4) Elevated d-dimer Plan: Due to consumption coagulopathy which has resolved. (5) Rhabdomyolysis Plan: Due to muscle destruction. Will Dc 1/2 ns with bicarbonate but will start patient on normal saline after PRBC transfusion. CK still elevated but trending down 5263 --> 4579 ---> 3292, continue with IV fluids. (6) Hemolytic anemia Plan: Due to venom toxic effect, DIC Status Post blood transfusion of 2 units of PRBCs. Hemoglobin stable 8.1 - 8.3 Continue to monitor hemoglobin (7) HTN (hypertension) Plan: BP stable, continue to monitor vital signs. (8) GORDO (acute kidney injury) Plan: Resolved after IV fluid administration. Kidney us - no hydronephrosis Continue to monitor strict I's and O's, monitor BUN/creatinine. (9) Lactic acidosis Plan: Resolved after IV fluid administration (10) Sinus tachycardia Plan: Ekg on admission reviewed by me shows sinus tachycardia. Continue IV fluids - seems to be slowly improving Likely reactive to anemia, dehydration, continue to monitor on telemetry GI prophylaxis: Continue PPI, Zofran for nausea, senna Colace to prevent constipation. DVT prophylaxis: No SCDs given snake bite local injury, no chemoprophylaxis. Discharge Planning ok to tranfer to the medical floor. Problem Qualifiers (1) Toxic effect of rattlesnake venom: Qualified Code: T63.011D - Toxic effect of rattlesnake venom, accidental or unintentional, subsequent encounter (2) Rhabdomyolysis: Qualified Code: M62.82 - Non-traumatic rhabdomyolysis (3) Hemolytic anemia: Qualified Code: D59.6 - Hemoglobinuria due to hemolysis from other external causes Azar Brewer MD Nov 23, 2016 14:17
[2016-11-23] MEDS: LACTULOSE SYRUP 20 GM/30 ML CUP PO PRN (16:38)
--- NOTE | 2016-11-23 18:46 | PD.CONS ---
History of Present Illness Service Infectious disease Consult Requested By Dr Perera Reason for Consult Evaluate patient with cellulitis after a snake bite Primary Care Physician No Primary Care Physician Diagnoses: History of Present Illness Patient seen and examined. Records reviewed. Patient is a 66-year-old male, admitted to the hospital after he was acutely bitten by a diamondback rattlesnake about 3 foot-long on his left anterior tibia through his trousers. He developed intense pain and check the side and there was one puncture wound. He presented to the emergency room and was complaining of significant pain. He was treated with anti-venom, and was followed in the ICU. He was in DIC. He stabilized, and was subsequently transferred out of the medical ICU. About 3 days ago he started developing some area of erythema on his anterior leg. He also had some low-grade fevers. He was started on Ancef, and today the area of redness had gotten worse. Patient complains of significant pain on his left leg especially when he puts weight on it. He is also complaining of pruritic rash in his back and hip area and back of his legs. Patient was changed to clindamycin yesterday and vancomycin added today. Infectious disease consultation has been requested to assist with treatment. Review of Systems Constitutional: DENIES: Chills, Night Sweats Ears, nose, mouth, throat: DENIES: Nasal discharge, Oral lesions, Throat pain, Sinus Pain Respiratory: DENIES: Cough, Shortness of breath Cardiovascular: COMPLAINS OF: Lower Extremity Edema, DENIES: Chest pain, Palpitations Gastrointestinal: DENIES: Abdominal pain, Diarrhea, Nausea, Vomiting Genitourinary: DENIES: Urgency, Dysuria Musculoskeletal: COMPLAINS OF: Back pain Neurologic: DENIES: Headache Psychiatric: DENIES: Hallucinations Past Family Social History Allergies: Coded Allergies: No Known Allergies (Unverified , 11/16/16) Past Medical History Hypertension Past Surgical History Cardiac catheterization Active Ordered Medications Tylenol [place] Albuterol Dulcolax Clindamycin Dilaudid Lactulose MOM Zofran Protonix Pericolace Senokot Vancomycin Family History Strong family history of heart disease Social History No smoking Social alcohol use Denies illicit drugs Physical Exam Vital Signs Vital Signs Date Time Temp Pulse Resp B/P Pulse Ox O2 Delivery O2 Flow Rate FiO2 11/23/16 16:00 98.7 96 20 142/67 98 11/23/16 12:24 105 11/23/16 12:00 98.8 101 20 123/61 94 11/23/16 08:44 Room Air 11/23/16 08:00 99.9 97 20 127/73 93 11/23/16 04:00 98.2 96 18 125/64 96 11/23/16 00:00 98.1 97 18 124/73 95 11/22/16 20:33 96 11/22/16 20:00 99.0 94 16 126/66 91 11/22/16 19:39 Room Air Physical Exam GENERAL: Patient is a well-nourished, well-developed male, awake and alert, not in respiratory distress. SKIN: Warm and dry. He has scattered erythematous maculopapular rash in L hip.thigh area, buttocks, back of his thigh and some in his upper chest HEAD: Atraumatic. Normocephalic. No temporal wasting, or tenderness. EYES: [place] conjunctiva. No petechia or hemorrhage. Pupils equal, round and reactive to light. Extraocular movements full and intact. No scleral icterus. No injection or drainage. EARS, NOSE AND THROAT: Nose without bleeding or purulent nasal discharge. No sinus tenderness. Mucous membranes pink and moist. No oral lesions noted. No exudate. No oral thrush. NECK: Trachea midline. Supple and not tender, no meningeal signs CARDIOVASCULAR: Regular rate and rhythm. No murmurs, rubs or gallops heard RESPIRATORY: Clear to auscultation. Breath sounds equal bilaterally. No rales , wheezing or rhonchi ABDOMEN: Soft, non-tender, nondistended. Bowel sounds present and normoactive. No guarding. No rebound. No organomegaly. EXTREMITIES: No clubbing, cyanosis. No calf tenderness. Well perfused and warm. Has resolving ecchymoses in his L leg up to his thigh. The LLE is larger than RLE. There is an area of erythema on his whole L led down to his ankle and foot, and he has pitting edema. Previous bite alonzo are dry. NEUROLOGICAL: Awake and alert. Cranial nerves grossly intact. Motor grossly within normal limits. PSYCHIATRIC: Normal affect, calm and cooperative. LINE: No evidence of infection Laboratory Laboratory Tests Test 11/23/16 09:40 White Blood Count 10.9 Red Blood Count 2.75 Hemoglobin 8.3 Hematocrit 25.0 Mean Corpuscular Volume 90.8 Mean Corpuscular Hemoglobin 30.3 Mean Corpuscular Hemoglobin 33.4 Concent Red Cell Distribution Width 14.3 Platelet Count 166 Mean Platelet Volume 8.1 Sodium Level 136 Potassium Level 4.1 Chloride Level 104 Carbon Dioxide Level 24.3 Anion Gap 8 Blood Urea Nitrogen 11 Creatinine 0.95 Estimat Glomerular Filtration 79 Rate Random Glucose 98 Calcium Level 8.1 Total Creatine Kinase 2334 Creatine Kinase MB 1.4 Creatine Kinase MB % 0.1 Result Diagram: 11/23/16 0940 11/23/16 0940 Imaging RADIOLOGY STUDIES/FILMS REVIEWED Last Impressions Renal Ultrasound 11/17/16 0000 Signed Impressions: Service Date/Time: October 16:39 - CONCLUSION: Normal examination except for cyst within the left kidney. Paul Chi MD Tibia/Fibula X-Ray 11/16/16 0000 Signed Impressions: Service Date/Time: Wednesday, November 16, 2016 15:36 - CONCLUSION: Unremarkable examination of the left tibia. No foreign object is identified. Paul Chi MD Assessment and Plan Assessment and Plan IMPRESSION Cellulitis LLE, area of previous rattlesnake bite Snake bite L leg, with DIC S/P antivenom Rx Rash, looks like a drug eruption, prob from Ancef RECOMMENDATION Continue IV vancomycin Leg elevation Stop Clindamycin Monitor response to RX ?Doppler US to eval DVT I will follow along with you Thank you for this consultation Discussed Condition With Explained plan to the patient Yue Hinojosa MD Nov 23, 2016 18:46
[2016-11-24] VITALS (10 sets, daily range): BP systolic 107–145; BP diastolic 59–75; PULSE 83–100; RESP 16–20; TEMP 98.1–99.5; O2SAT 93–96
[2016-11-24] MEDS: CHLORHEXIDINE GLUCONATE 2 % 1 PACK (2 CLOTHS) TOP SCH (03:20)
[2016-11-24] MEDS: HYDROmorphone HCL PF 1 MG/ML VIAL IV PRN ×5 (03:21→22:44)
[2016-11-24] MEDS: DOCUSATE SODIUM 50 MG/SENNA 8.6 MG TAB PO SCH ×2 (09:03→20:45)
[2016-11-24] MEDS: SODIUM CHLORIDE 0.9% FLUSH 10 ML FLUSH IV FLUSH SCH ×2 (09:04→20:46)
[2016-11-24] MEDS: PANTOPRAZOLE SODIUM 40 MG VIAL IV SCH (09:04)
[2016-11-24] MEDS: SODIUM CHLOR 0.9% 1000 ML INJ 1,000 ML IV SCH ×2 (11:42→20:48)
[2016-11-24] MEDS: VANCOMYCIN INJ 1,500 MG in SODIUM CHLORID 0.9% 500 ML INJ 500 ML IV SCH ×2 (11:42→20:45)
--- NOTE | 2016-11-24 13:39 | HHI.IDPN ---
Subjective Subjective Remarks Patient is a 66-year-old male, admitted to the hospital after he was acutely bitten by a diamondback rattlesnake about 3 foot-long on his left anterior tibia through his trousers. He developed intense pain and check the side and there was one puncture wound. He presented to the emergency room and was complaining of significant pain. He was treated with anti-venom, and was followed in the ICU. He was in DIC. He stabilized, and was subsequently transferred out of the medical ICU. About 3 days ago he started developing some area of erythema on his anterior leg. He also had some low-grade fevers. He was started on Ancef, and today the area of redness had gotten worse. Patient complains of significant pain on his left leg especially when he puts weight on it. He is also complaining of pruritic rash in his back and hip area and back of his legs. Patient was changed to clindamycin yesterday and vancomycin added today. Antibiotics Vancomycin Lines PIV Past Medical History HTN Previous cardiac cath Allergies: Coded Allergies: No Known Allergies (Unverified , 11/16/16) Objective . Vital Signs Date Time Temp Pulse Resp B/P Pulse Ox O2 Delivery O2 Flow Rate FiO2 11/24/16 12:00 99.3 83 20 128/68 96 11/24/16 09:17 94 11/24/16 09:13 88 11/24/16 09:13 Room Air 11/24/16 08:00 99.3 94 20 145/75 96 11/24/16 04:00 Room Air 11/24/16 04:00 98.1 96 19 135/71 96 11/24/16 00:00 Room Air 11/24/16 00:00 98.5 98 20 107/59 95 11/23/16 21:03 Room Air 11/23/16 20:00 98.5 106 20 121/60 96 11/23/16 20:00 98 11/23/16 20:00 Room Air 11/23/16 16:00 98.7 96 20 142/67 98 11/23/16 11/23/16 11/24/16 14:59 22:59 06:59 Intake Total 360 ml 2205 ml 240 ml Output Total 1500 ml 1250 ml 1400 ml Balance -1140 ml 955 ml -1160 ml Intake Oral 360 ml 360 ml 240 ml IV Total 1845 ml Output Urine Total 1500 ml 1250 ml 1400 ml # Bowel Movements 0 . Laboratory Tests Test 11/23/16 09:40 White Blood Count 10.9 TH/MM3 Red Blood Count 2.75 MIL/MM3 Hemoglobin 8.3 GM/DL Hematocrit 25.0 % Mean Corpuscular Volume 90.8 FL Mean Corpuscular Hemoglobin 30.3 PG Mean Corpuscular Hemoglobin 33.4 % Concent Red Cell Distribution Width 14.3 % Platelet Count 166 TH/MM3 Mean Platelet Volume 8.1 FL Laboratory Tests Test 11/23/16 11/24/16 09:40 05:42 Sodium Level 136 MEQ/L Potassium Level 4.1 MEQ/L Chloride Level 104 MEQ/L Carbon Dioxide Level 24.3 MEQ/L Anion Gap 8 MEQ/L Blood Urea Nitrogen 11 MG/DL Creatinine 0.95 MG/DL 0.87 MG/DL Estimat Glomerular Filtration 79 ML/MIN 88 ML/MIN Rate Random Glucose 98 MG/DL Calcium Level 8.1 MG/DL Total Creatine Kinase 2334 U/L Creatine Kinase MB 1.4 NG/ML Creatine Kinase MB % 0.1 % Microbiology Date/Time Procedure Status Source Growth 11/23/16 19:20 Aerobic Blood Culture - Preliminary Resulted Blood Peripheral NO GROWTH IN 1 DAY 11/23/16 19:20 Anaerobic Blood Culture - Preliminary Resulted Blood Peripheral NO GROWTH IN 1 DAY 11/23/16 19:25 Aerobic Blood Culture - Preliminary Resulted Blood Peripheral NO GROWTH IN 1 DAY 11/23/16 19:25 Anaerobic Blood Culture - Preliminary Resulted Blood Peripheral NO GROWTH IN 1 DAY Physical Exam GENERAL: awake and alert, not in respiratory distress. SKIN: Warm and dry. He has scattered erythematous maculopapular rash in L hip/ thigh area, buttocks, back of his thigh and some in his upper chest, stable and not worse HEAD: Atraumatic. Normocephalic. No temporal wasting, or tenderness. EYES: [place] conjunctiva. No petechia or hemorrhage. Pupils equal, round and reactive to light. Extraocular movements full and intact. No scleral icterus. No injection or drainage. EARS, NOSE AND THROAT: Nose without bleeding or purulent nasal discharge. No sinus tenderness. Mucous membranes pink and moist. No oral lesions noted. No exudate. No oral thrush. NECK: Trachea midline. Supple and not tender, no meningeal signs CARDIOVASCULAR: Regular rate and rhythm. No murmurs, rubs or gallops heard RESPIRATORY: Clear to auscultation. Breath sounds equal bilaterally. No rales , wheezing or rhonchi ABDOMEN: Soft, non-tender, nondistended. Bowel sounds present and normoactive. No guarding. No rebound. No organomegaly. EXTREMITIES: No clubbing, cyanosis. No calf tenderness. Well perfused and warm. Has resolving ecchymoses in his L leg up to his thigh. The LLE is larger than RLE. There is an area of improving erythema on his whole L leg down to his ankle and foot, and he has improving edema. Previous bite alonzo are dry. NEUROLOGICAL: Awake and alert. Cranial nerves grossly intact. Motor grossly within normal limits. PSYCHIATRIC: Normal affect, calm and cooperative. LINE: No evidence of infection Assessment & Plan Remarks IMPRESSION Cellulitis LLE, area of previous rattlesnake bite, improving Snake bite L leg, with DIC S/P antivenom Rx Rash, looks like a drug eruption, prob from Ancef, stable RECOMMENDATION Continue IV vancomycin Leg elevation SHAJI stocking If continues to improve, ok to D/C tomorrow on Clinda 300 QID x 7 days Monitor response to RX ?Doppler US to eval DVT Yue Hinojosa MD Nov 24, 2016 13:39
--- NOTE | 2016-11-24 16:07 | HHI.PR ---
Subjective Remarks still has pain in LLE but is controlled had rash in chest and legs which has resolved denies cp/sob Objective Vitals Vital Signs Date Time Temp Pulse Resp B/P Pulse Ox O2 Delivery O2 Flow Rate FiO2 11/24/16 12:00 99.3 83 20 128/68 96 11/24/16 09:17 94 11/24/16 09:13 88 11/24/16 09:13 Room Air 11/24/16 08:00 99.3 94 20 145/75 96 11/24/16 04:00 Room Air 11/24/16 04:00 98.1 96 19 135/71 96 11/24/16 00:00 Room Air 11/24/16 00:00 98.5 98 20 107/59 95 11/23/16 21:03 Room Air 11/23/16 20:00 98.5 106 20 121/60 96 11/23/16 20:00 98 11/23/16 20:00 Room Air I/O 11/23/16 11/23/16 11/23/16 11/24/16 11/24/16 11/24/16 07:00 15:00 23:00 07:00 15:00 23:00 Intake Total 240 ml 360 ml 2205 ml 240 ml 480 ml Output Total 2200 ml 1500 ml 1250 ml 1400 ml 575 ml Balance -1960 ml -1140 ml 955 ml -1160 ml -95 ml Intake Oral 240 ml 360 ml 360 ml 240 ml 480 ml IV Total 1845 ml Output Urine Total 2200 ml 1500 ml 1250 ml 1400 ml 575 ml # Bowel Movements 0 0 1 Result Diagram: 11/23/16 0940 11/24/16 0542 Imaging Last Impressions Renal Ultrasound 11/17/16 0000 Signed Impressions: Service Date/Time: October 16:39 - CONCLUSION: Normal examination except for cyst within the left kidney. Paul Chi MD Tibia/Fibula X-Ray 11/16/16 0000 Signed Impressions: Service Date/Time: Wednesday, November 16, 2016 15:36 - CONCLUSION: Unremarkable examination of the left tibia. No foreign object is identified. Paul Chi MD Objective Remarks GENERAL: 66-year-old male, resting in bed in mild distress secondary to pain SKIN: Warm and dry. Noted diamondback snake bite to the anterior tibia approximately 2 x 2 centimeters in size, no oozing. Ecchymoses throughout the left lower extremity from below the knee to toes. 42.5 cm circumference at snake bite site. 10 cm above 38 cm. Circumference HEAD: Atraumatic. Normocephalic. EYES: Pupils equal and round around 3 mm bilaterally and reactive. No scleral icterus. No injection or drainage. ENT: No nasal bleeding or discharge. Mucous membranes pink and moist. NECK: Trachea midline. No JVD. CARDIOVASCULAR: Tachycardic, RR. S1, S2. No S4. Without murmurs. RESPIRATORY: Clear to auscultation. Breath sounds equal bilaterally. GASTROINTESTINAL: Abdomen soft, non-tender, nondistended. Hepatic and splenic margins not palpable. MUSCULOSKELETAL: Extremities with edema as above in the skin section. Erythema over anterior vinson seems to be improving. NEUROLOGICAL: Awake and alert. No obvious cranial nerve deficits. Motor grossly within normal limits. Five out of 5 muscle strength in the arms and legs. Normal speech. PSYCHIATRIC: Appropriate mood and affect; insight and judgment normal. Procedures none Medications and IVs Current Medications Medications (Trade) Dose Ordered Sig/Emil Route Start Time Stop Time Status Last Admin (NS Flush) 2 ml UNSCH PRN IV FLUSH 11/16/16 18:00 11/24/16 03:22 (NS Flush) 2 ml BID IV FLUSH 11/16/16 21:00 11/24/16 09:04 (Tylenol) 650 mg Q6H PRN PO 11/16/16 18:00 11/21/16 13:23 ([place] 5-325 Mg) 1 tab Q4H PRN PO 11/16/16 18:00 (Protonix Inj) 40 mg DAILY IV 11/17/16 09:00 11/24/16 09:04 (Zofran Inj) 4 mg Q6H PRN IV 11/16/16 18:00 11/16/16 22:51 Miscellaneous Information 1 Q361D XX 11/16/16 18:00 (Chlorhexidine 2% Cloth) Taper DAILY@04 TOP 11/17/16 04:00 11/13/17 03:59 11/21/16 01:26 (Chlorhexidine 2% Cloth) 3 pack UNSCH PRN TOP 11/16/16 18:00 (Ana-Colace) 1 tab BID PO 11/16/16 21:00 11/24/16 09:03 (Milk Of Magnesia Liq) 30 ml Q12H PRN PO 11/16/16 18:00 (Senokot) 17.2 mg Q12H PRN PO 11/16/16 18:00 (Dulcolax Supp) 10 mg DAILY PRN RECTAL 11/16/16 18:00 (Lactulose Liq) 30 ml DAILY PRN PO 11/16/16 18:00 11/24/16 16:59 (Dilaudid Pf Inj) 1 mg Q2H PRN IV 11/17/16 00:00 11/24/16 17:00 (Dilaudid Pf Inj) 0.5 mg Q2H PRN IV PUSH 11/16/16 22:30 (D50w (Vial) Inj) 50 ml UNSCH PRN IV 11/17/16 03:30 (Glucagon Inj) 1 mg UNSCH PRN OTHER 11/17/16 03:30 Ondansetron HCl 4 mg 4 mg Q6HR PRN IV PUSH 11/17/16 17:00 Sodium Chloride 1,000 ml @ 100 mls/hr Q10H IV 11/20/16 09:45 11/24/16 11:42 Pharmacy Profile Note 0 ml @ 0 mls/hr UNSCH OTHER 11/23/16 08:15 (Vancomycin Inj/ NS 500 ml Inj) 515 ml @ 250 mls/hr Q12H IV 11/23/16 10:00 11/24/16 11:42 Miscellaneous Information SPECIFIC LAB TO BE DRAWN:VANCOMYCIN TROUGH DATE TO... ONCE ONCE .XX 11/25/16 09:45 11/25/16 09:46 Urinary Catheter: No Vascular Central Line Catheter: No A/P Problem List: (1) Toxic effect of rattlesnake venom ICD Code: T63.011A Status: Acute (2) Thrombocytopenia ICD Code: D69.6 Status: Resolved (3) Fibrinogen decreased ICD Code: D68.2 Status: Resolved (4) Elevated d-dimer ICD Code: R79.89 Status: Resolved (5) Rhabdomyolysis ICD Code: M62.82 Status: Acute (6) Hemolytic anemia ICD Code: D58.9 Status: Resolved (7) HTN (hypertension) ICD Code: I10 Status: Chronic (8) GORDO (acute kidney injury) ICD Code: N17.9 Status: Resolved (9) Lactic acidosis ICD Code: E87.2 Status: Resolved (10) Sinus tachycardia ICD Code: R00.0 Status: Resolved (11) Low grade fever ICD Code: R50.9 Status: Resolved Plan: Patient had a tmax of 100.2 F night of 11/20. Possibly due to superimposed cellulitis on affected left lower extremity. started on IV Cefazolin on 11/21 to cover for possible superimposed cellulitis of left lower extremity which seems to be worst however. Initially started on Iv Cefazolin which was discontinued on 11/22 and Clindamycin started. 11/23 continue IV clindamycin, I will add IV vancomycin and consult infectious disease since there seems to be worsening of cellulitis. (12) Generalized weakness ICD Code: R53.1 Status: Acute Plan: The patient states he feels very weak. Physical therapy has been consulted. Efforts appreciated. (13) Cellulitis of left lower extremity ICD Code: L03.116 Status: Acute Plan: Initially started on IV Cefazolin on 11/21, however erythema seems to be worsening - DC Cefazolin and Start IV Clindamycin. 11/24 ID consult appreciated. Probable drug rash 2/2 Ancef resolving. Clindamycin discontinued. Continue IV Vancomycin. If cerythema and cellulitis better tomorrow may DC on oral clindamycin as per ID recommendations. Assessment and Plan (1) Toxic effect of rattlesnake venom Plan: Diamondback snake bite admitted to the intensive care unit, initially under the care of the cafeteria server. Patient with hemolytic anemia status post transfusion of packed red blood cells Continue pain control with acetaminophen, [place], Dilaudid IV. sp Crofab administration sp tetanus diphteria tox 0.5 mg IM x1 (2) Thrombocytopenia Plan: Platelet count sightly improved from 116k to 120k. no bleeding observed. continue to monitor platelets. (3) Fibrinogen decreased Plan: Due to toxic effect of venom and consumption coagulopathy sp cryoprecipitate infusion Fibrinogen within normal range (4) Elevated d-dimer Plan: Due to consumption coagulopathy which has resolved. (5) Rhabdomyolysis Plan: Due to muscle destruction. Will Dc 1/2 ns with bicarbonate but will start patient on normal saline after PRBC transfusion. CK still elevated but trending down 5263 --> 4579 ---> 3292, continue with IV fluids. (6) Hemolytic anemia Plan: Due to venom toxic effect, DIC Status Post blood transfusion of 2 units of PRBCs. Hemoglobin stable 8.1 - 8.3 Continue to monitor hemoglobin (7) HTN (hypertension) Plan: BP stable, continue to monitor vital signs. (8) GORDO (acute kidney injury) Plan: Resolved after IV fluid administration. Kidney us - no hydronephrosis Continue to monitor strict I's and O's, monitor BUN/creatinine. (9) Lactic acidosis Plan: Resolved after IV fluid administration (10) Sinus tachycardia Plan: Ekg on admission reviewed by me shows sinus tachycardia. Continue IV fluids - seems to be slowly improving Likely reactive to anemia, dehydration, continue to monitor on telemetry GI prophylaxis: Continue PPI, Zofran for nausea, senna Colace to prevent constipation. DVT prophylaxis: No SCDs given snake bite local injury, no chemoprophylaxis. Discharge Planning Possible DC in am. Pending improvement of cellulitis. Problem Qualifiers (1) Toxic effect of rattlesnake venom: Qualified Code: T63.011D - Toxic effect of rattlesnake venom, accidental or unintentional, subsequent encounter (2) Rhabdomyolysis: Qualified Code: M62.82 - Non-traumatic rhabdomyolysis (3) Hemolytic anemia: Qualified Code: D59.6 - Hemoglobinuria due to hemolysis from other external causes Azar Brewer MD Nov 24, 2016 16:07
[2016-11-24] MEDS: LACTULOSE SYRUP 20 GM/30 ML CUP PO PRN (16:59)
[2016-11-25] MEDS: CHLORHEXIDINE GLUCONATE 2 % 1 PACK (2 CLOTHS) TOP SCH (04:00)
[2016-11-25 05:02] VITALS: BP 127/63; PULSE 93; RESP 16; TEMP 98.5; O2SAT 94
[2016-11-25 06:59] LABS: HEMATOCRIT 25.2 % (39.0-51.0); MEAN CELL VOLUME 90.1 FL (80.0-100.0); MEAN CORPUSCULAR HGB CONC 33.3 % (32.0-36.0); PLATELET COUNT 248 TH/MM3 (150-450); RED BLOOD COUNT 2.79 MIL/MM3 (4.50-5.90); RED CELL DISTRIBUTION WIDTH 14.2 % (11.6-17.2); REVIEW FLAG FINAL; WHITE BLOOD COUNT 9.3 TH/MM3 (4.0-11.0)
[2016-11-25 07:13] LABS: BICARBONATE 24.6 MEQ/L (21.0-32.0); POTASSIUM 4.4 MEQ/L (3.5-5.1)
[2016-11-25] MEDS: HYDROmorphone HCL PF 1 MG/ML VIAL IV PRN (07:44)
[2016-11-25] MEDS: SODIUM CHLORIDE 0.9% FLUSH 10 ML FLUSH IV FLUSH SCH (07:46)
[2016-11-25] MEDS: PANTOPRAZOLE SODIUM 40 MG VIAL IV SCH (07:46)
[2016-11-25] MEDS: DOCUSATE SODIUM 50 MG/SENNA 8.6 MG TAB PO SCH (07:46)
[2016-11-25 08:00] VITALS: BP 130/73; PULSE 95; RESP 20; TEMP 98; O2SAT 96
[2016-11-25 08:07] VITALS: PULSE 91
--- NOTE | 2016-11-25 09:35 | HHI.PR ---
Subjective Remarks Follow up snake bite, LLE cellulitis. Patient states that his LLE is still very swollen and painful. Still with erythema. Objective Vitals Vital Signs Date Time Temp Pulse Resp B/P Pulse Ox O2 Delivery O2 Flow Rate FiO2 11/25/16 05:02 98.5 93 16 127/63 94 11/24/16 23:15 99.4 93 16 117/66 93 11/24/16 20:30 Room Air 11/24/16 20:05 100 11/24/16 19:37 98.3 98 16 127/66 93 11/24/16 16:00 99.5 95 20 126/73 95 11/24/16 12:00 99.3 83 20 128/68 96 I/O 11/24/16 11/24/16 11/24/16 11/25/16 11/25/16 11/25/16 07:00 15:00 23:00 07:00 15:00 23:00 Intake Total 240 ml 480 ml 3240 ml 240 ml Output Total 1400 ml 575 ml 1225 ml 1450 ml Balance -1160 ml -95 ml 2015 ml -1210 ml Intake Oral 240 ml 480 ml 960 ml 240 ml IV Total 2280 ml Output Urine Total 1400 ml 575 ml 1225 ml 1450 ml # Bowel Movements 1 1 0 Result Diagram: 11/25/16 0600 11/25/16 0600 Imaging Last Impressions Renal Ultrasound 11/17/16 0000 Signed Impressions: Service Date/Time: October 16:39 - CONCLUSION: Normal examination except for cyst within the left kidney. Paul Chi MD Tibia/Fibula X-Ray 11/16/16 0000 Signed Impressions: Service Date/Time: Wednesday, November 16, 2016 15:36 - CONCLUSION: Unremarkable examination of the left tibia. No foreign object is identified. Paul Chi MD Objective Remarks General: No acute distress. Heart: Regular rate and rhythm. No murmur. Lungs: Clear to auscultation bilaterally. No wheezes, rales, or rhonchi. Breathing is nonlabored. Abdomen: Soft, nontender, nondistended. Extremities: Left lower extremity with 2+ edema. There is erythema overlying the entire lower leg anteriorly. Psych: Alert and oriented. Procedures none Urinary Catheter: No Vascular Central Line Catheter: No A/P Problem List: (1) Toxic effect of rattlesnake venom ICD Code: T63.011A Status: Acute (2) Thrombocytopenia ICD Code: D69.6 Status: Resolved (3) Fibrinogen decreased ICD Code: D68.2 Status: Resolved (4) Elevated d-dimer ICD Code: R79.89 Status: Resolved (5) Rhabdomyolysis ICD Code: M62.82 Status: Acute (6) Hemolytic anemia ICD Code: D58.9 Status: Resolved (7) HTN (hypertension) ICD Code: I10 Status: Chronic (8) GORDO (acute kidney injury) ICD Code: N17.9 Status: Resolved (9) Lactic acidosis ICD Code: E87.2 Status: Resolved (10) Sinus tachycardia ICD Code: R00.0 Status: Resolved (11) Low grade fever ICD Code: R50.9 Status: Resolved (12) Generalized weakness ICD Code: R53.1 Status: Acute (13) Cellulitis of left lower extremity ICD Code: L03.116 Status: Acute Assessment and Plan 1. Rattlesnake bite, left lower leg: Patient developed hemolytic anemia. Status post transfusion of 2 units PRBCs and 1 unit of cryoprecipitate. Hemoglobin is stable. 2. Cellulitis, left lower extremity: Continue antibiotics. Appreciate infectious disease recommendations. When improving, can transition to oral antibiotics. 3. Generalized weakness: Continue physical therapy. Patient will need inpatient rehabilitation at discharge. 4. Rhabdomyolysis: Improving. CK trending down. Continue fluids. 5. Hemolytic anemia: H&H stable following transfusion. 6. Hypertension: Stable. 7. Acute kidney injury: Resolved. 8. Lactic acidosis: Resolved. 9. GI prophylaxis: PPI. 10. DVT prophylaxis: SHAJI hose. Avoid chemical prophylaxis secondary to anemia due to snake venom. Discharge Planning The patient has been accepted at [facility]. Plan for discharge when cleared by infectious disease. Problem Qualifiers (1) Toxic effect of rattlesnake venom: Qualified Code: T63.011D - Toxic effect of rattlesnake venom, accidental or unintentional, subsequent encounter (2) Rhabdomyolysis: Qualified Code: M62.82 - Non-traumatic rhabdomyolysis (3) Hemolytic anemia: Qualified Code: D59.6 - Hemoglobinuria due to hemolysis from other external causes Conrad Vu MD Nov 25, 2016:35
[2016-11-25] MEDS ORDERED: CLIN1CAP6 PO (09:37)
[2016-11-25] MEDS ORDERED: SENN1TAB PO (09:37)
[2016-11-25] MEDS ORDERED: HYDR-3516 PO (09:37)
[2016-11-25] MEDS ORDERED: PHARMACY ORDERED LAB ONE (09:45)
[2016-11-25] MEDS: VANCOMYCIN INJ 1,500 MG in SODIUM CHLORID 0.9% 500 ML INJ 500 ML IV SCH (10:31)
[2016-11-25] MEDS: SODIUM CHLOR 0.9% 1000 ML INJ 1,000 ML IV SCH (10:32)
[2016-11-25 10:38] VITALS: O2SAT 93
--- NOTE | 2016-11-25 10:40 | HHI.DCPOC ---
Discharge Care Plan Diagnosis: (1) HTN (hypertension) (2) Fibrinogen decreased (3) Hemolytic anemia (4) Thrombocytopenia (5) Lactic acidosis (6) Sinus tachycardia (7) Cellulitis of left lower extremity (8) Generalized weakness (9) GORDO (acute kidney injury) (10) Rhabdomyolysis (11) Toxic effect of rattlesnake venom Goals to Promote Your Health * To prevent worsening of your condition and complications * To maintain your health at the optimal level Directions to Meet Your Goals Take your medications as prescribed Follow your dietary instruction Follow activity as directed Keep your appointments as scheduled Take your immunizations and boosters as scheduled If your symptoms worsen call your PCP, if no PCP go to Urgent Care Center or Emergency Room Smoking is Dangerous to Your Health. Avoid second hand smoke Call the 24-hour hour crisis hotline for domestic abuse at Conrad Vu MD Nov 25, 2016 10:40
== END 2016-11-25 13:15 | DRG 917 ==
LOC: NEPE 14:59 → NEDA 17:44 → HIME 21:50 → N04B 11-21 14:38
PROVIDERS: ADMIT Family Medicine; ATTEND Family Medicine
DX: T63.011A Toxic effect of rattlesnake venom, accidental (unintentional), initial encounter (principal); D65 Disseminated intravascular coagulation [defibrination syndrome]; N17.9 Acute kidney failure, unspecified; E87.2 Acidosis; L03.116 Cellulitis of left lower limb; M62.82 Rhabdomyolysis; E88.09 Other disorders of plasma-protein metabolism, not elsewhere classified; D59.6 Hemoglobinuria due to hemolysis from other external causes; I10 Essential (primary) hypertension; R00.0 Tachycardia, unspecified; L27.0 Generalized skin eruption due to drugs and medicaments taken internally; T36.1X5A Adverse effect of cephalosporins and other beta-lactam antibiotics, initial encounter; R09.02 Hypoxemia; N28.1 Cyst of kidney, acquired; E87.5 Hyperkalemia; E86.0 Dehydration; Y92.239 Unspecified place in hospital as the place of occurrence of the external cause; Y92.69 Other specified industrial and construction area as the place of occurrence of the external cause; Z82.49 Family history of ischemic heart disease and other diseases of the circulatory system
CPT/HCPCS: 20950; 36430; 73590; 76775; 76937; 80048; 80053; 80202; 81001; 82550; 82552; 82565; 82570; 82948; 83605; 83735; 84100; 84132; 84300; 85007; 85014; 85018; 85025; 85027; 85049; 85379; 85384; 85610; 85730; 86850; 86900; 86901; 86920; 86965; 87040; 87205; 87641; 90471; 90714; 93005; 94150; 96374; 96375; C9113; J0610; J0690; J0840; J1170; J1200; J1815; J2270; J2405; J2765; J2930; J3010; J3370; J3475; J7030; J7040; J7050; J7120; P9016